=== PATIENT | female | born 1985 | race American Indian/Alaskan Native ===

== ENCOUNTER 2018-09-13 13:51 | Emergency (ER) | payer OTHER, SELFPAY ==
[2018-09-13 13:58] VITALS: BP 123/72; PULSE 86; RESP 14; TEMP 36.6
--- NOTE | 2018-09-13 14:20 | DI.RAD_ITS ---
SYMPTOM/DIAGNOSIS: ROLLED ANKLE INWARD AND HEARD SNAP. PAIN ALL OVER RIGHT ANKLE: No fracture or ankle mortise widening is seen. There is spurring of both malleoli and at the Achilles insertion on the calcaneus. The talar dose appears intact. IMPRESSION: No acute abnormality.
--- NOTE | 2018-09-13 14:24 | ED.GENADUL_ITS ---
Discharge Plan Disposition Patient Disposition: HOME Condition: Good Discharge Details Chief Complaint: Orthopedic Clinical Impression: Right ankle sprain Primary Care Provider: Camryn Vyas ED Provider: Yovanny Juares Home Meds and New Rx's Prescriptions: No Action hydroxyzine HCl 25 MG tablet 1 tab PO TID RF: 0 meloxicam 15 MG tablet 15 mg PO DAILY RF: 0 gabapentin 400 MG capsule 800 mg PO TID RF: 0 tramadol 50 MG tablet 50 mg PO Q6H PRN PRNRF: 0 levothyroxine 88 MCG tablet 1 tab PO DAILY RF: 0 epinephrine 0.3 MG/SYR auto-injector 0.3 mg IJ PRN PRNRF: 0 omeprazole magnesium [Prilosec OTC] 20 MG tablet,delayed release (DR/EC) 20 mg PO DAILY RF: 0 cholecalciferol (vitamin D3) [Vitamin D3] 2,000 UNIT capsule 1 tab PO DAILY RF: 0 Discharge Instructions Instructions: Ankle Sprain (ED) Stand Alone Forms: Work Release Referrals: Camryn Vyas [Primary Care Provider] - Return if symptoms worsen Medical Decision Making Will x-ray tib/fib, ankle, and foot. 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 Reviewed radiology report with her and friends. Nurse fitted for ankle stabilizer splint. She has crutches for home use. Advised to use RICE therapy. Work note provided. Return if symptoms worsen otherwise with pcp. Imaging Data Radiologic Study: Imaging: X-Ray My impression: no fracture Radiologist's impression: V-Rad: Right ankle: No evidence of acute diana abnormality. Tib/Fib: No evidence of acute diana abnormality. Foot: No evidence of acute bony injury. HPI General Date/Time Provider Initiated Documentation: 09/13/18 14:03 . Limitations to Documentation: no limitations . Information obtained by: patient . HPI Narrative: 33 y/o female here with c/o right ankle, foot, and leg pain. 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 Now swelling to the ankle and pain through out ankle, foot, lower leg. Took Tramadol COSTUME CUTTER. Related Data Home Medications Medication Instructions Recorded Confirmed cholecalciferol (vitamin D3) 1 tab PO DAILY 11/30/14 09/13/18 [Vitamin D-3] epinephrine 0.3 mg IJ PRN PRN 11/30/14 09/13/18 gabapentin 800 mg PO TID 11/30/14 09/13/18 hydroxyzine HCl 1 tab PO TID 11/30/14 09/13/18 levothyroxine 1 tab PO DAILY 11/30/14 10/23/16 meloxicam 15 mg PO DAILY 11/30/14 09/13/18 omeprazole magnesium [PriLOSEC Otc] 20 mg PO DAILY 11/30/14 09/13/18 tramadol 50 mg PO Q6H PRN PRN 11/30/14 09/13/18 Allergies Allergy/AdvReac Type Severity Reaction Status Date / Time venom-honey bee Allergy Severe Anaphylaxsi Unverified 10/23/16 15:17 [bee venom (honey bee)] s General Stated Complaint: Orthopedic MARTA: 4 Review of Systems Musculoskeletal Comments: right ankle, foot, and lower leg pain after rolling ankle and hearing snap PFSH Social History Smoking/Tobacco Use Status: Current every day Exam Const General: cooperative, healthy appearing and no acute distress Nutritional Appearance: obese Orientation: alert, awake and oriented x3 Extrem Right lower extremity: knee Details: normal to inspection and normal ROM; no tenderness and no swelling, lower leg Details: normal to inspection and tenderness Location: of the midshaft tibia, of the midshaft fibula, of the distal tibia and of the distal fibula; not of the posterior calf, not of the proximal tibia and not of the proximal fibula; no erythema and no deformity and ankle Details: tenderness Location: of the lateral malleolus, of the medial malleolus, of the anterior talofibular ligament, of the achilles tendon, anteromedially, anterolaterally, posteriorly and anteriorly, swelling Details: diffusely and abnormal ROM Details: pain with active ROM; no ecchymosis and achilles tendon exam normal Course Vital Signs Temperature 36.6 C 09/13/18 13:58 Pulse 86 09/13/18 13:58 Respiratory Rate 14 09/13/18 13:58 Blood Pressure 123/72 09/13/18 13:58 Temperature 36.6 C 09/13/18 13:58 Temperature Source Temporal Artery Scan 09/13/18 13:58 Pulse 86 09/13/18 13:58 Respiratory Rate 14 09/13/18 13:58 Blood Pressure 123/72 09/13/18 13:58 Blood Pressure Position Sitting 09/13/18 13:58 Oxygen Delivery Method Room Air 09/13/18 13:58 Oxygen Flow Rate 0 09/13/18 13:58 Pain Level 8 09/13/18 13:58
--- NOTE | 2018-09-13 14:48 | DI.RAD_ITS ---
SYMPTOM/DIAGNOSISS: ROLLED FOOT AND HEARD SNAP RIGHT FOOT: The exam is limited by patient positioning. No fracture or dislocation is identified. IMPRESSION: limited exam. No acute abnormality.
--- NOTE | 2018-09-13 14:58 | DI.RAD_ITS ---
SYMPTOM/DIAGNOSIS: ROLLED ANKLE, HEARD SNAP. PAIN IN MID-MADRIGAL RIGHT TIBIA/FIBULA: No fracture is identified. There are mild degenerative changes at the knee and ankle. IMPRESSION: No acute abnormality.
--- NOTE | 2018-09-13 15:04 | DI.VRAD_ITS ---
EXAM: XR Right Tibia and Fibula, 2 Views EXAM DATE/TIME: 09/13/2018 2:23 PM CLINICAL HISTORY: 33 years old, female; Pain; Lower leg; Right; Patient HX: Right leg pain, patient heard snap when rolled ankle. TECHNIQUE: XR Right tibia and fibula 2 views COMPARISON: No relevant prior studies available. FINDINGS: The bony structures are in anatomic alignment. No fracture is present. No radiopaque foreign body is identified. The joint spaces are well maintained. IMPRESSION: No evidence of acute bony abnormality. Dictated and Authenticated by: Russel Starkey MD. Ordering:CORRINA HERNANDEZ MD
--- NOTE | 2018-09-13 15:05 | DI.VRAD_ITS ---
EXAM: XR Right Foot Complete, 3 or more Views EXAM DATE/TIME: 09/13/2018 2:23 PM CLINICAL HISTORY: 33 years old, female; Pain; Foot; Right; Patient HX: Right foot pain, rolled foot patient heard snap. TECHNIQUE: XR Right foot 3 or more views. COMPARISON: CR RIGHT FOOT COMPLETE 06/09/2015 4:03 PM FINDINGS: Suggestion of extension deformities of the metatarsal phalangeal joints. May be positional. No evidence of acute bony injury. No radiopaque foreign bodies. IMPRESSION: No evidence of acute bony injury. Dictated and Authenticated by: Russel Starkey MD. Ordering:CORRINA HERNANDEZ MD
--- NOTE | 2018-09-13 15:07 | DI.VRAD_ITS ---
EXAM: XR Right Ankle Complete, 3 or more Views EXAM DATE/TIME: 09/13/2018 2:54 PM CLINICAL HISTORY: 33 years old, female; Pain; Ankle; Right TECHNIQUE: XR Right ankle 3 or more views. COMPARISON: CR RIGHT FOOT COMPLETE 06/09/2015 4:03 PM FINDINGS: The bony structures are in anatomic alignment. No fracture is present. No radiopaque foreign body is identified. The joint spaces are well maintained. IMPRESSION: No evidence of acute bony normality. Dictated and Authenticated by: Russel Starkey MD. Ordering:CORRINA HERNANDEZ MD
== END 2018-09-13 15:41 | disposition home or self-care (01) ==
LOC: ER 15:45
PROVIDERS: Emergency Provider Nurse Practitioner Family; PCP Family Medicine
DX: S93.401A Sprain of unspecified ligament of right ankle, initial encounter (principal); X50.3XXA Overexertion from repetitive movements, initial encounter
CPT/HCPCS: 29125; 99284; 73590; 73610; 73630; 99282; L1902

== ENCOUNTER 2019-01-02 16:19 | Emergency (ER) | payer MEDICAID, SELFPAY ==
[2019-01-02 16:24] VITALS: BP 130/82; PULSE 110; RESP 21; TEMP 37; O2SAT 95
--- NOTE | 2019-01-02 17:10 | ED.GENADUL_ITS ---
Discharge Plan Disposition Patient Disposition: HOME Condition: Stable Discharge Details Chief Complaint: Nk/Back Pain Clinical Impression: Back pain, Sciatica of left side Primary Care Provider: Camryn Vyas ED Provider: Eben Aaron Home Meds and New Rx's Prescriptions: New diclofenac potassium 50 mg tablet 50 mg PO TID PRN (Reason: pain) Qty: 15 RF: 0 lidocaine 5 % adhesive patch,medicated 1 patch TP DAILY PRN (Reason: pain) Qty: 15 RF: 0 prednisone 20 mg tablet 40 mg PO DAILY Qty: 8 RF: 0 Continued hydroxyzine HCl 25 MG tablet 1 tab PO PRN PRNRF: 0 gabapentin 400 MG capsule 800 mg PO TID RF: 0 tramadol 50 MG tablet 50 mg PO Q6H PRN PRNRF: 0 levothyroxine 88 MCG tablet 1 tab PO DAILY RF: 0 epinephrine 0.3 MG/SYR auto-injector 0.3 mg IJ PRN PRNRF: 0 cholecalciferol (vitamin D3) [Vitamin D3] 2,000 UNIT capsule 1 tab PO DAILY RF: 0 Discontinued meloxicam 15 MG tablet 15 mg PO DAILY RF: 0 Discharge Instructions Instructions: Sciatica (ED), Back Pain (ED) Additional Instructions: Feel free to return the emergency department for any new or significant worsening of symptoms or change in your back pain pattern. Otherwise take medication as prescribed and follow-up with your primary care provider or pain clinic as needed for reassessment Referrals: Camryn Vyas [Primary Care Provider] - (For reassessment if not improving) Discharge Data Discharge Date/Time-TO BE ENTERED AT DEPARTURE: 01/02/19 18:05 Medical Decision Making Patient presenting the emergency department for chief complaint of back pain. Patient reports that she has had chronic back pain for years and has seen her primary care along with the pain clinic. Patient reports this morning she woke up with a slight twinge in her back but did not think much of it but then when she went to the bar and to shovel she noticed a significant increase worsening of her back symptoms. Patient immediately had to stop and has noticed some increased spasms and pain throughout the day. She normally states sciatic type pain down her left leg but has noticed a little on the right. Patient states that she is ambulatory but movement does increase symptoms. Physical exam shows lumbar tenderness along with left buttock tenderness. Positive straight leg raise bilateral equal patellar DTRs bilateral, normal sensation and movement to lower extremities. Given chronicity of patient's back pain and no specific change in symptoms but just worsening flareup today I do not feel that any radiological imaging is warranted as I see no emergent signs of back pain such as epidural abscess, cauda equina, and no indication for fracture or traumatic type incidents that would require imaging or lab testing. Plan to treat patient symptomatically with Toradol shot, lidocaine patch, and prednisone which patient states is helped in the past. Patient was offered diazepam but refused this medication at this time. Patient placed up on 5-day burst of prednisone and informed to follow-up with primary care provider for reassessment if not improving. Patient also prescribed diclofenac and lidocaine patches for home use along with her Flexeril she is already prescribed. Return precautions were discussed. After discussion of diagnosis and plan of care patient has no further needs, questions, or concerns and states clear understanding to return to the emergency department for any worsening symptoms. HPI General Mode of arrival: ambulatory . Date/Time Provider Initiated Documentation: 01/02/19 16:38 . Limitations to Documentation: no limitations . Information obtained by: patient . History of Present Illness 33 year old F presents to the emergency department with the chief complaint of back pain, described as severe and similar to prior episodes, with intensity rated at 10. Quality is described as sharp, and is localized to the back. Patient extremity. Patient started experiencing this hour(s) (8) and it has been constant. No relieving factors improve symptom(s), Movement worsens symptoms . Patient did receive the following treatments prior to arrival, other (Trama dol, Flexeril) Related Data Home Medications Medication Instructions Recorded Confirmed cholecalciferol (vitamin D3) 1 tab PO DAILY 11/30/14 01/02/19 [Vitamin D3] epinephrine 0.3 mg IJ PRN PRN 11/30/14 01/02/19 gabapentin 800 mg PO TID 11/30/14 01/02/19 hydroxyzine HCl 1 tab PO PRN PRN 11/30/14 01/02/19 levothyroxine 1 tab PO DAILY 11/30/14 01/02/19 tramadol 50 mg PO Q6H PRN PRN 11/30/14 01/02/19 diclofenac potassium 50 mg PO TID PRN #15 tab 01/02/19 lidocaine 1 patch TP DAILY PRN #15 each 01/02/19 prednisone 40 mg PO DAILY #8 tab 01/02/19 Previous Rx's Medication Instructions Recorded diclofenac potassium 50 mg PO TID PRN #15 tab 01/02/19 lidocaine 1 patch TP DAILY PRN #15 each 01/02/19 prednisone 40 mg PO DAILY #8 tab 01/02/19 Allergies Allergy/AdvReac Type Severity Reaction Status Date / Time venom-honey bee Allergy Severe Anaphylaxsi Unverified 01/02/19 16:38 [bee venom (honey bee)] s General Stated Complaint: Nk/Back Pain MARTA: 3 Review of Systems Constitutional Denies chills and Denies fever(s) Cardiovascular Denies chest pain and Denies dyspnea on exertion Respiratory Denies cough and Denies dyspnea on exertion Gastrointestinal Denies abdominal pain, Denies change in bowel habits, Denies diarrhea, Denies nausea and Denies vomiting Genitourinary Denies urinary incontinence Musculoskeletal Reports as per HPI and Reports back pain Neurologic Denies sensory deficit PFSH Social History Smoking/Tobacco Use Status: Current every day Tobacco Type: cigarettes Smoking cigarettes per day: 10 Years smoked: 15 Tobacco: How many years used: 15 Alcohol Intake: current Alcohol Intake frequency: a few times a month Alcohol type: beer Drug use: Occasionally Substance use type: marijuana Details: CBV oil to help with pain, puts in her coffee Do you feel safe at home: Yes Do you feel safe in your relationship?: Yes Exam Const General: cooperative and no acute distress Orientation: alert, awake and oriented x3 Neck Neck: normal visual inspection, full ROM and no meningeal signs Resp Effort & Inspection: normal respiratory effort Auscultation: clear to auscultation bilaterally Cardio Rate: regular rate Rhythm: regular rhythm Heart Sounds: S1 normal and S2 normal Back/Spine/Pelvis Thoracic/Lumbar Spine: pain with thoraco-lumbar ROM, thoraco-lumbar ROM limited, No thoraco-lumbar spasm, No thoracic spinal tenderness, lumbar spinal tenderness and straight leg raise positive (Bilateral) Pelvis: no pain with anterior-posterior compression, no pain with lateral compression, buttock tenderness on the left and sciatic notch tenderness on the right Neuro General: alert, awake and oriented x3 DTR's: Rt Patellar: 1+ and Lt Patellar: 1+ Extrem Right lower extremity: hip/thigh Details: normal to inspection, knee Details: normal to inspection and lower leg Details: normal to inspection Course Vital Signs Temperature 37.0 C 01/02/19 16:24 Pulse 110 H 01/02/19 16:24 Respiratory Rate 21 01/02/19 16:24 Blood Pressure 130/82 01/02/19 16:24 Pulse Oximetry 95 01/02/19 16:24 Temperature 37.0 C 01/02/19 16:24 Temperature Source Temporal Artery Scan 01/02/19 16:24 Pulse 110 H 01/02/19 16:24 Respiratory Rate 21 01/02/19 16:24 Respiratory Effort Non-Labored 01/02/19 16:34 Blood Pressure 130/82 01/02/19 16:24 Pulse Oximetry 95 01/02/19 16:24 Oxygen Delivery Method Room Air 01/02/19 16:24 Oxygen Flow Rate 0 01/02/19 16:24 Pain Level 10 01/02/19 16:24
[2019-01-02] MEDS: Lidocaine 5% Patch 1 PATCH TP (17:29)
[2019-01-02] MEDS: Ketorolac 60 MG/2 ML VIAL IM (17:33)
[2019-01-02] MEDS: predniSONE 20 MG TAB 60 MG PO (17:37)
[2019-01-02 17:55] VITALS: BP 114/75; PULSE 99; RESP 16; TEMP 36.9; O2SAT 96
[2019-01-02 18:10] VITALS: BP 114/75; PULSE 99; RESP 16; TEMP 36.9; O2SAT 96
== END 2019-01-02 18:05 | disposition home or self-care (01) ==
PROVIDERS: Emergency Provider Nurse Practitioner Family; PCP Family Medicine
DX: M54.42 Lumbago with sciatica, left side (principal)
CPT/HCPCS: 96372; 99284; J1885; J7512

== ENCOUNTER 2019-01-27 14:45 | Outpatient (CLI) | payer MEDICAID, SELFPAY ==
--- NOTE | 2019-01-27 08:44 | DI.MRI_ITS ---
SYMPTOM/DIAGNOSIS: CHRONIC LOW BACK PAIN, M54.5 LUMBAR SPINE MRI: Routine noncontrast examination was performed. The conus medullaris has a normal appearance and location. At L 5-S 1, there is a left paracentral disc herniation. No nerve root compression is present. There is no central spinal canal stenosis or right neural foraminal stenosis. There does appear to be minimal narrowing of the left neural foramen. At L 4-5, there is disc desiccation. There is a small central disc herniation but no nerve root compression is present. No significant central spinal canal stenosis is seen. There does appear to be mild narrowing of the neural foramen but no nerve root compression is seen. L 3-4, L 2-3 and L 1-2 show no focal disc herniation, central spinal canal or neural foraminal stenosis. Marrow signal is within normal limits. IMPRESSION: 1. Left paracentral disc herniation at L 5-S 1 but no nerve root compression is present. No significant central spinal stenosis is seen. 2. Degenerative disc disease and a question of a very small central disc herniation at L 4-5 but no nerve root compression is identified.
== END 2019-01-27 15:05 ==
PROVIDERS: PCP Family Medicine; Visit Provider Family Medicine
DX: M54.5 Low back pain (principal); M51.27 Other intervertebral disc displacement, lumbosacral region; M51.36 Other intervertebral disc degeneration, lumbar region; G89.29 Other chronic pain
CPT/HCPCS: 72148

== ENCOUNTER 2019-02-11 13:35 | Outpatient (CLI) | payer MEDICAID, SELFPAY ==
[2019-02-11 13:43] VITALS: BP 156/81; PULSE 108; RESP 22; TEMP 36.3; O2SAT 97
--- NOTE | 2019-02-11 14:31 | DI.RAD_ITS ---
SYMPTOMS/DIAGNOSIS: LUMBAR RADICULOPATHY PAIN CLINIC LUMBAR SPINE: Fluoroscopy Time: 41.2 sec 46.21 mGy Images submitted from the Pain Clinic demonstrate needle positioning over the left lateral portion of the L5 vertebral body in conjunction with a transforaminal epidural steroid injection. Please see Dr. Dumont's procedure report for further information.
--- NOTE | 2019-02-11 14:35 | PDOC.PAIN_ITS ---
Pain Clinic Procedure Note Current Active Problems Problem Status Onset Lumbar radiculitis Chronic LUMBAR / SACRAL TRANSFORAMINAL INJECTION JENA KISER has been referred [facility] for a transforaminal nerve root block and steroid injection. COMMENTS: The patient has a disc herniation at L5-S1. Her pain goes down to her foot. To her heel. Patient was interviewed and the medical record reviewed. There were no medical, pharmacologic, radiographic or other structural contraindications to attempting fluoroscopically guided transforaminal nerve root block and epidural steroid injection. Risks and expected side effects as well as potential benefit of the procedure were reviewed and voiced concerns addressed. The printed consent form was signed and witnessed. Standard time-out procedure was performed. Patient was placed in the prone position on the fluoroscopy table and automated blood pressure cuff and pulse oximeter applied. Fluoroscopy was utilized to identify the {left} neural foramen between L5 and S1. A skin bill was made for the needle insertion site. A Chlorhexadine prep was carried out, and sterile drapes were applied. Local anesthesia was achieved in the skin and subcutaneous tissues. A 22 gauge curved tip spinal needle was then inserted, advanced with fluoroscopic guidance into the neural foramen, confirmed on the lateral view. After negative aspiration, 2 ml of Omnipaque 240 was injected confirming position in A/P and lateral views. This showed a good spread of dye transforaminally into the epidural space. There was no vascular update with contrast injection under continuous fluoroscopy and digital substraction. 40 mg of Depo-Medrol was injected, followed by 0.5 ml of 0.5% bupivacaine flush for the nerve root block, as well. There was no unusual discomfort expressed.The needle was withdrawn. The patient tolerated the procedure well. A Band-Aid was applied. Vital signs were stable throughout the procedure and were as recorded in nursing records. If given, dosages of intravenous drugs for anxiolysis and analgesia were documented in nursing records. Follow up plans and appointments were discussed. Post procedure instruction was given as documented in nursing records and patient was discharged in the care of an identified commercial driver's license driver. COMMENTS: Pain went from 9/10 to 3/10. She will follow-up as needed consider repeating if she gets good relief that lasts. CC: Camryn Vyas
[2019-02-11] MEDS: Bupivacaine 0.5% Pres-Free 10 ML VIAL IJ (14:43)
[2019-02-11] MEDS: Omnipaque 240 MG/ML 50 ML BTL IJ (14:44)
[2019-02-11] MEDS: methylPREDNISolone ACETATE 40 MG/ML VIAL IJ (14:44)
[2019-02-11 14:46] VITALS: BP 140/73; PULSE 114; RESP 16; O2SAT 100
== END 2019-02-11 13:55 ==
PROVIDERS: PCP Family Medicine; Visit Provider Anesthesiology Pain Medicine
DX: M54.16 Radiculopathy, lumbar region (principal)
CPT/HCPCS: 64483; 72100; J1030; Q9967

== ENCOUNTER 2019-08-22 17:07 | Emergency (ER) | payer OTHER, SELFPAY ==
[2019-08-22 17:11] VITALS: BP 131/79; PULSE 84; RESP 18; TEMP 36.5; O2SAT 98
--- NOTE | 2019-08-22 17:33 | ED.GENADUL_ITS ---
Discharge Plan Disposition Patient Disposition: HOME Condition: Stable Discharge Details Chief Complaint: Orthopedic Clinical Impression: Left ankle sprain Primary Care Provider: Camryn Vyas ED Provider: Tyrell Garcia Home Meds and New Rx's Prescriptions: Continued omeprazole 20 mg capsule,delayed release(DR/EC) 20 mg PO DAILY RF: 0 cyclobenzaprine 10 mg tablet 10 mg PO TID RF: 0 hydroxyzine HCl 25 MG tablet 1 tab PO PRN PRNRF: 0 gabapentin 400 MG capsule 800 mg PO TID RF: 0 levothyroxine 88 MCG tablet 1 tab PO DAILY RF: 0 epinephrine 0.3 MG/SYR auto-injector 0.3 mg IJ PRN PRNRF: 0 cholecalciferol (vitamin D3) [Vitamin D3] 2,000 UNIT capsule 1 tab PO DAILY RF: 0 tramadol 50 mg tablet 50 mg PO TID PRNRF: 0 lidocaine 5 % adhesive patch,medicated 1 patch TP DAILY PRN (Reason: pain) Qty: 15 RF: 0 ibuprofen 200 mg Tablet 200 mg PO QID PRNRF: 0 Discharge Instructions Instructions: Ankle Sprain (ED) Additional Instructions: Rest, ice, elevate to reduce pain and swelling. May use ankle stabilizer and/or Jaswinder bandage for stability and comfort. Remove at the end of the day. Return for worsening discomfort, or any other acute concern. Medical Decision Making 34-year-old female presents with left lateral ankle pain that began after she rolled the ankle trying to get into her office this morning. She did strike her head but did not have a loss of conscious does not of any persistent headache. She was not injured in any other way. Her vital signs are normal. She is tender primarily overlying the left lateral malleolus, minimally so left proximal fibula. Patient given Tylenol and referred for x-ray: No evidence of fracture. Will treat with lace up ankle stabilizer. Discussed with patient home management as well as indications to return. Stable for outpatient management at this time. HPI General Mode of arrival: ambulatory . Date/Time Provider Initiated Documentation: 08/22/19 17:20 . Limitations to Documentation: no limitations . Information obtained by: patient . History of Present Illness 34 year old F presents to the emergency department with the chief complaint of Left ankle pain after twisting this morning, described as moderate, Quality is described as dull, and is localized to the left and lower extremity. Patient reports no radiation. Patient started experiencing this hour(s) and it has been constant. Rest improves symptom(s), Movement worsens symptoms . Patient notes no other symptoms. and other (Slight striking of her head but no loss of consciousness, no headache). Patient did receive the following treatments prior to arrival, NSAID Related Data Home Medications Medication Instructions Recorded Confirmed cholecalciferol (vitamin D3) 1 tab PO DAILY 11/30/14 02/11/19 [Vitamin D3] epinephrine 0.3 mg IJ PRN PRN 11/30/14 02/11/19 gabapentin 800 mg PO TID 11/30/14 02/11/19 hydroxyzine HCl 1 tab PO PRN PRN 11/30/14 02/11/19 levothyroxine 1 tab PO DAILY 11/30/14 02/11/19 lidocaine 1 patch TP DAILY PRN #15 each 01/02/19 02/11/19 cyclobenzaprine 10 mg tablet 10 mg PO TID 01/14/19 02/11/19 omeprazole 20 mg capsule,delayed 20 mg PO DAILY 01/14/19 02/11/19 release tramadol 50 mg tablet 50 mg PO TID PRN tab 01/14/19 02/11/19 ibuprofen 200 mg PO QID PRN 02/11/19 02/11/19 Previous Rx's Medication Instructions Recorded lidocaine 1 patch TP DAILY PRN #15 each 01/02/19 Allergies Allergy/AdvReac Type Severity Reaction Status Date / Time venom-honey bee Allergy Severe Anaphylaxsi Unverified 08/22/19 17:17 [bee venom (honey bee)] s High Doses of Acetaminophen AdvReac Unknown Uncoded 08/22/19 17:17 General Stated Complaint: Orthopedic MARTA: 4 Review of Systems Narrative: 6 systems reviewed and otherwise negative [facility] Medical History Agoraphobia with panic attacks (Chronic) Ankle pain, right (Acute) Arthralgia (Acute) Chronic low back pain (Chronic) Cyclical vomiting (Acute) Dental caries (Acute) Depression with anxiety (Chronic) Family history of breast cancer (Acute) Family history of diabetes mellitus (Acute) Hx of bee sting allergy (Acute) Hypothyroidism (Chronic) Obesity (Chronic) PTSD (post-traumatic stress disorder) (Chronic) Tobacco use disorder (Acute) Social History Smoking/Tobacco Use Status: Current every day Tobacco Type: cigarettes Years smoked: 15 Tobacco: How many years used: 15 Alcohol Intake: current Alcohol Intake frequency: holidays/special occasions only Alcohol type: beer Drug use: Occasionally Substance use type: marijuana Details: CBD oil to help with pain, puts in her coffee Do you feel safe at home: Yes Do you feel safe in your relationship?: Yes Exam Narrative Exam Narrative: GEN: awake, alert, oriented 3. Pleasant, well groomed, interactive. HEAD: Normocephalic, atraumatic ENT: Mucous membranes moist, oropharynx unremarkable, External ear exam unremarkable EYES: PERRL, EOMI NECK: Full ROM, no DANIEL, no menigismus, nontender CHEST/RESP: Nontender EXT: Full ROM, left lateral malleoli are swelling with tenderness. Minimal left proximal fibular tenderness to palpation. Sensation intact throughout Neuro: Grossly normal neurologic exam, conversant, interactive. Psych: Speech fluent, thoughts congruent, affect normal Course Vital Signs Vital signs: Vital Signs Temperature 36.5 C 08/22/19 17:11 Pulse 84 08/22/19 17:11 Respiratory Rate 18 08/22/19 17:11 Blood Pressure 131/79 08/22/19 17:11 Pulse Oximetry 98 08/22/19 17:11 Temperature 36.5 C 08/22/19 17:11 Temperature Source Temporal Artery Scan 08/22/19 17:11 Pulse 84 08/22/19 17:11 Respiratory Rate 18 08/22/19 17:11 Respiratory Effort Non-Labored 08/22/19 17:16 Blood Pressure 131/79 08/22/19 17:11 Blood Pressure Position Supine 08/22/19 17:11 Pulse Oximetry 98 08/22/19 17:11 Oxygen Delivery Method Room Air 08/22/19 17:11 Oxygen Flow Rate 0 08/22/19 17:11 Pain Level 8 08/22/19 17:28
[2019-08-22] MEDS: Acetaminophen 500 MG TAB 1000 MG PO (17:34)
--- NOTE | 2019-08-22 17:52 | DI.RAD_ITS ---
EXAM: XR TIB/FIB LT INDICATION: lateral pain and swelling distal > prox. COMPARISON: XR tib/fib RT from 09/13/2018 TECHNIQUE: 2D digital imaging was performed. FINDINGS: No fracture or dislocation is seen. Degenerative changes are noted at the knee. Ankle joint space is well maintained. No soft tissue foreign bodies or abnormal gas collections are seen. IMPRESSION: No acute abnormality.
--- NOTE | 2019-08-22 19:04 | DI.VRAD_ITS ---
PROCEDURE INFORMATION: Exam: XR Left Tibia and Fibula Exam date and time: 08/22/2019 17:51 Clinical history: 34 years old, female; Lower leg; Left; Patient HX: Lateral pain and swelling distal - proximal TECHNIQUE: Imaging protocol: XR Left tibia and fibula. Views: 2 views. COMPARISON: No relevant prior studies available. FINDINGS: Bones/joints: Degenerative changes are present in the knee. No acute fracture or subluxation. Soft tissues: Benign-appearing chronic soft tissue calcifications in the lateral ankle. IMPRESSION: No acute bony pathology. Dictated and Authenticated by: Ameena Henderson MD. Ordering:AUGUSTUS Santillan MD
== END 2019-08-22 18:35 | disposition home or self-care (01) ==
PROVIDERS: Emergency Provider Emergency Medicine; PCP Family Medicine
DX: S93.402A Sprain of unspecified ligament of left ankle, initial encounter (principal); X50.9XXA Other and unspecified overexertion or strenuous movements or postures, initial encounter
CPT/HCPCS: 29515; 99283; 73590; L1902

== ENCOUNTER 2020-01-19 02:15 | Outpatient (CLI) | payer MEDICAID, SELFPAY ==
[2020-01-22 04:43] LABS: SARS-CoV-2 RNA Undetected (Undetected); SARS-CoV-2 Specimen Source Nasopharynx
== END 2020-01-19 02:35 ==
PROVIDERS: PCP Family Medicine; Visit Provider Specialist/Technologist Athletic Trainer
DX: Z20.828 Contact with and (suspected) exposure to other viral communicable diseases (principal)
CPT/HCPCS: U0003

== ENCOUNTER 2020-09-17 17:09 | Emergency (ER) | payer MEDICAID, SELFPAY ==
--- NOTE | 2020-09-17 17:30 | DI.RAD_ITS ---
EXAM: XR ANKLE LT COMPLETE CLINICAL HISTORY: Left ankle injury, pain. TECHNIQUE: 2D digital imaging was performed. COMPARISON: CR XR ANKLE RT COMPLETE from 09/13/2018 FINDINGS: There is no evidence of acute fracture no widening of the mortise. Talar dome appears unremarkable. Small calcifications subjacent to the lateral malleolus have the appearance of accessory ossicles. Bone density is normal. No osseous lesions. IMPRESSION: No acute fracture or dislocation. DATA REPOSITORY: RADIATION DOSE DELIVERED:
--- NOTE | 2020-09-17 17:42 | W.ED.GENAD ---
Discharge Plan Disposition Patient Disposition: HOME Condition: Stable Discharge Details Clinical Impression: Moderate left ankle sprain Primary Care Provider: Camryn Vyas ED Provider: Yaquelin Joyce Home Meds and New Rx's Prescriptions: Continued omeprazole 20 mg capsule,delayed release(DR/EC) 20 mg PO DAILY RF: 0 cyclobenzaprine 10 mg tablet 10 mg PO TID RF: 0 hydroxyzine HCl 25 MG tablet 1 tab PO PRN PRNRF: 0 gabapentin 400 MG capsule 800 mg PO TID RF: 0 levothyroxine 88 MCG tablet 1 tab PO DAILY RF: 0 epinephrine 0.3 MG/SYR auto-injector 0.3 mg IJ PRN PRNRF: 0 cholecalciferol (vitamin D3) [Vitamin D3] 2,000 UNIT capsule 1 tab PO DAILY RF: 0 tramadol 50 mg tablet 50 mg PO TID PRNRF: 0 lidocaine 5 % adhesive patch,medicated 1 patch TP DAILY PRN (Reason: pain) Qty: 15 RF: 0 ibuprofen 200 mg Tablet 200 mg PO QID PRNRF: 0 Discharge Instructions Instructions: Ankle Sprain (ED) Additional Instructions: Rest, ice, compression, elevation. Use walking boot as instructed for weightbearing. Follow-up with orthopedics in 1 to 2 weeks. Follow up with primary care provider in 3-5 days. Return to ED sooner if any worsening or concerns. Increase oral fluids. Please take Tylenol or Ibuprofen with food every 4-6 hours as needed for pain and swelling. Referrals: Camryn Vyas [Primary Care Provider] - Misael Rodriguez MD [ [facility]YSICIAN] - Medical Decision Making 34-year-old female presents to the ER with chief complaint of left ankle pain. Patient states approximately 1 month ago she rolled her left ankle while hiking. She was never seen at that time. She states that last night she put her foot down from the couch and felt a sharp stabbing pain to the back of her ankle. She has increased pain with weightbearing. She is limping upon arrival but ambulatory. She has a past medical history of lumbar radiculopathy and back pain, obesity, PTSD, hypothyroidism, and she is a daily smoker. : XR Left ankle. Views: 3 or more views. COMPARISON: CR LEFT FOOT COMPLETE 06/09/2015 3:59 PM FINDINGS: Bones/joints: No acute fracture. No dislocation. No focal osseous lesion. Soft tissues: No soft tissue radiopaque foreign body. Other findings: A few small well-corticated calcifications inferior to the left lateral malleolus, likely reflecting old injury. IMPRESSION: 1. No acute fracture or dislocation. 2. A few small well-corticated calcifications inferior to the left lateral malleolus, likely reflecting old injury. Thank you for allowing us to participate in the care of your patient Patient was given a Ortho walking boot and instructed on RICE treatment at home. Placed on orthopedic follow-up list. Instructed to take Tylenol or ibuprofen every 4-6 hours as needed for pain. Patient verbalized understanding. She was given Tylenol while here in department. Differential diagnoses include occult fracture, Achilles tendon tear, or other injuries. HPI General Mode of arrival: ambulatory. Date/Time Provider Initiated Documentation: 09/17/20 17:32. Limitations to Documentation: no limitations. Information obtained by: patient. HPI Narrative: 34-year-old female presents to the ER with chief complaint of left ankle pain. Patient states approximately 1 month ago she rolled her left ankle while hiking. She was never seen at that time. She states that last night she put her foot down from the couch and felt a sharp stabbing pain to the back of her ankle. She has increased pain with weightbearing. She is limping upon arrival but ambulatory. She has a past medical history of lumbar radiculopathy and back pain, obesity, PTSD, hypothyroidism, and she is a daily smoker. Related Data Home Medications Medication Instructions Recorded Confirmed cholecalciferol (vitamin D3) 1 tab PO DAILY 11/30/14 02/11/19 [Vitamin D3] epinephrine 0.3 mg IJ PRN PRN 11/30/14 02/11/19 gabapentin 800 mg PO TID 11/30/14 02/11/19 hydroxyzine HCl 1 tab PO PRN PRN 11/30/14 02/11/19 levothyroxine 1 tab PO DAILY 11/30/14 02/11/19 lidocaine 1 patch TP DAILY PRN #15 each 01/02/19 02/11/19 cyclobenzaprine 10 mg tablet 10 mg PO TID 01/14/19 02/11/19 omeprazole 20 mg capsule,delayed 20 mg PO DAILY 03/27/19 04/24/19 release tramadol 50 mg tablet 50 mg PO TID PRN tab 01/14/19 02/11/19 ibuprofen 200 mg PO QID PRN 02/11/19 02/11/19 Previous Rx's Medication Instructions Recorded lidocaine 1 patch TP DAILY PRN #15 each 01/02/19 Allergies Allergy/AdvReac Type Severity Reaction Status Date / Time venom-honey bee Allergy Severe Anaphylaxsi Unverified 09/17/20 17:48 [bee venom (honey bee)] s High Doses of Acetaminophen AdvReac Unknown Uncoded 09/17/20 17:48 General MARTA: 4 Review of Systems Narrative: Constitutional: Negative for weight loss, alert and oriented, well groomed, normal body habitus, appears comfortable. HEENT: Denies trauma, headaches, blurry vision, nasal discharge, sore throat, trouble swallowing. Chest: Denies chest pain, palpitations, irregular rhythm, hypertension. Respiratory: Denies Shortness of breath, cough, hemoptysis. GI: Denies abdominal pain, nausea, vomiting, diarrhea, constipation. : Denies dysuria, hematuria, flank pain, rectal bleeding. Musculoskeletal: Left ankle pain. Neuro: Denies dizziness, blurry vision, weakness, syncope, headache or facial numbness. Hematologic: Denies easy bruising, intolerance to heat or cold, hair loss. [facility] Medical History (Updated 09/17/20 @ 18:35 by Yaquelin Joyce) Agoraphobia with panic attacks Ankle pain, right Arthralgia Chronic low back pain Cyclical vomiting Dental caries Depression with anxiety Family history of breast cancer Family history of diabetes mellitus Hx of bee sting allergy Hypothyroidism Obesity PTSD (post-traumatic stress disorder) Tobacco use disorder Social History Smoking/Tobacco Use Status: Current every day Tobacco Type: cigarettes Years smoked: 15 Tobacco: How many years used: 15 Smoking risk assessment performed?: Yes Alcohol Intake: current Alcohol Intake frequency: holidays/special occasions only Alcohol type: beer Drug use: Occasionally Substance use type: marijuana Details: CBD oil to help with pain, puts in her coffee Do you feel safe at home: Yes Do you feel safe in your relationship?: Yes Exam Narrative Exam Narrative: Constitutional: Alert and oriented x3. Appears stated age. obese body habitus. Head: Normocephalic, no trauma. Eyes: Pupils PERRLA, Red reflex noted, EOM's intact. Eyelids symmetrical without lesions, discharge, or swelling. ENT: Bilateral TM's WNL, External ear normal to inspection, no mastoid TTP, swelling, or erythema, Nasal turbinates WNL, no nasal discharge. Normal dentition, Posterior pharynx WNL, no exudate. Chest: RRR, Normal S1, S2, distal pulses intact. Resp: Lungs clear to auscultation bilaterally, no wheezes, rales, or rhonchi. Musculoskeletal: Normal gait, 5/5 strength to all four extremities. Skin: No suspicious rashes or lesions. Capillary refill less than 2 sec. Neurologic: Cranial nerves II-XII intact. Alert and oriented x 3. DTR's intact. Hematologic/Lymphatic: No ecchymosis, no lymphadenopathy.
[2020-09-17 17:45] VITALS: BP 116/69; PULSE 85; RESP 16; TEMP 36.7; O2SAT 100
--- NOTE | 2020-09-17 18:15 | DI.VRAD_ITS ---
PROCEDURE INFORMATION: Exam: XR Left Ankle Exam date and time: 09/17/2020 6:05 PM Age: 35 years old Clinical indication: Left ankle pain, injury TECHNIQUE: Imaging protocol: XR Left ankle. Views: 3 or more views. COMPARISON: CR LEFT FOOT COMPLETE 06/09/2015 3:59 PM FINDINGS: Bones/joints: No acute fracture. No dislocation. No focal osseous lesion. Soft tissues: No soft tissue radiopaque foreign body. Other findings: A few small well-corticated calcifications inferior to the left lateral malleolus, likely reflecting old injury. IMPRESSION: 1. No acute fracture or dislocation. 2. A few small well-corticated calcifications inferior to the left lateral malleolus, likely reflecting old injury. Dictated and Authenticated by: Juan Payan MD. Ordering:JUANA Jamison MD
[2020-09-17] MEDS: Ketorolac 30 MG/ML VIAL IVP (18:56)
[2020-09-17] MEDS: Acetaminophen 500 MG TAB PO (18:56)
== END 2020-09-17 19:05 | disposition home or self-care (01) ==
PROVIDERS: Emergency Provider Registered Nurse Emergency; PCP Family Medicine
DX: S93.492A Sprain of other ligament of left ankle, initial encounter (principal); X50.9XXA Other and unspecified overexertion or strenuous movements or postures, initial encounter
CPT/HCPCS: 29515; 96374; 99284; 73610; 99283; J1885

== ENCOUNTER 2020-11-01 01:19 | Outpatient (CLI) | payer MEDICAID, SELFPAY ==
--- NOTE | 2020-11-01 08:00 | DI.MRI_ITS ---
EXAM: MR LOWER JOINT LT WO CLINICAL HISTORY: ankle pain,achilles tendinitis,peroneal tendonitis,m76.62,m76.72. TECHNIQUE: Multiplanar multisequence MRI was performed. COMPARISON: CR,XR XR ANKLE LT COMPLETE from 09/17/2020 FINDINGS: There is edema in the subcutaneous fat of the lower leg. The marrow signal is normal. There is no talar dome defect. Small bony densities are noted beneath the lateral malleolus. The Achilles tendo n has a normal appearance. The peroneal tendons appear normal. The flexor and extensor tendons are intact. No ligamentous disruption is seen. IMPRESSION: No evidence tendon tear. Edema is seen in the subcutaneous fat. DATA REPOSITORY:
== END 2020-11-01 01:39 ==
PROVIDERS: PCP Family Medicine; Visit Provider Student in an Organized Health Care Education/Training Program
DX: M76.62 Achilles tendinitis, left leg (principal); M76.72 Peroneal tendinitis, left leg; M25.572 Pain in left ankle and joints of left foot; R60.0 Localized edema
CPT/HCPCS: 73721

== ENCOUNTER 2021-08-24 14:05 | Outpatient (REF) | payer MEDICAID, SELFPAY ==
[2021-08-25 10:45] LABS: Lyme Ab w Rflx to Lyme Confirm Negative (Negative)
== END 2021-08-24 14:06 | disposition home or self-care (01) ==
LOC: NCHCN 14:05
PROVIDERS: PCP Family Medicine; Visit Provider Nurse Practitioner Family
DX: R53.83 Other fatigue (principal)
CPT/HCPCS: 87798; 86618

== ENCOUNTER 2022-11-30 16:16 | Outpatient (REF) | payer MEDICAID, SELFPAY ==
[2022-11-30 20:45] LABS: Abs Immature Grans 0.03 10^3/uL (0.0-0.06); Absolute Basophil Count 0.02 10^3/uL (0.0-0.2); Absolute Eosinophil Count 0.11 10^3/uL (0.0-0.7); Absolute Lymphocyte Count 1.51 10^3/uL (1.2-3.4); Absolute Monocyte Count 0.91 10^3/uL (0.1-0.8); Absolute Neutrophil Count 4.49 10^3/uL (1.2-6.7); Basophils % 0.3; Eosinophils % 1.6; HCT 44.2 % (36.0-46.0); HGB 14.3 g/dL (11.2-15.7); Immature Grans % 0.4; Lymphocytes % 21.4; MCH 28.9 pg (27.0-33.0); MCHC 32.4 % (32.0-36.0); MCV 89 fL (80-95); MPV 11.4 fL (8.0-11.0); Monocytes % 12.9; Neutrophils % 63.4; Platelet Count 336 10^3/uL (130-400); RBC 4.95 10^6/uL (3.93-5.22); RDW 14.6 % (11.7-14.6); RDW-SD 48.1 fL; WBC 7.07 10^3/uL (4.4-10.8)
[2022-11-30 21:03] LABS: ALT 34 U/L (14-59); AST 30 U/L (15-37); Albumin 3.5 g/dL (3.4-5.0); Alkaline Phosphatase 76 U/L (46-116); Anion Gap 8.4 mmol/L (3-11); BUN 7 mg/dL (7-18); Bilirubin, Total 0.2 mg/dL (0.2-1.0); CO2 27.6 mmol/L (21.0-32.0); CREATININE 0.8 mg/dL (0.55-1.02); Calcium 8.6 mg/dL (8.5-10.1); Chloride 102 mmol/L (98-107); Estimated GFR 98.48 (mL/min/1.73m2); Glucose 124 mg/dL (74-106); Lipase 22 U/L (16-77); Potassium 3.9 mmol/L (3.5-5.1); Sodium 138 mmol/L (136-145); Total Protein 7.7 g/dL (6.4-8.2)
[2022-11-30 21:36] LABS: C Diff PCR Negative (Negative)
[2022-12-02 11:36] LABS: COVID-19 RT-PCR UVMMC Result Negative (Negative)
[2022-12-02 22:09] LABS: Campylobacter PCR Negative (Negative); Salmonella PCR Negative (Negative); Shiga Toxin PCR Negative (Negative); Shigella/Enteroinvasive Ecoli Negative (Negative)
== END 2022-11-30 16:17 | disposition home or self-care (01) ==
LOC: LBN 16:16
PROVIDERS: PCP Family Medicine; Visit Provider Physician Assistant Medical
DX: R11.2 Nausea with vomiting, unspecified (principal); R19.7 Diarrhea, unspecified; Z20.822 Contact with and (suspected) exposure to COVID-19
CPT/HCPCS: 80053; 83690; 87329; 87493; 87505; U0003; 85025; 87177

== ENCOUNTER 2023-04-26 15:50 | Outpatient (REF) | payer MEDICAID, SELFPAY ==
[2023-04-26 20:56] LABS: Source Nasal/Nares
[2023-04-26 21:40] LABS: COVID-19 PCR Negative (Negative)
[2023-04-28 12:18] LABS: Chlamydia Result Negative (Negative); GC Result Negative (Negative)
== END 2023-04-26 15:51 | disposition home or self-care (01) ==
LOC: LBN 15:50
PROVIDERS: PCP Family Medicine; Visit Provider Physician Assistant Medical
DX: L29.2 Pruritus vulvae (principal); Z20.822 Contact with and (suspected) exposure to COVID-19; N76.0 Acute vaginitis
CPT/HCPCS: 87491; 87591; 87635; 87480; 87510; 87660

== ENCOUNTER 2023-07-27 14:25 | Emergency (ER) | payer MEDICAID, SELFPAY ==
[2023-07-27 14:28] VITALS: BP 186/113; PULSE 70; RESP 18; TEMP 36.5; O2SAT 97
--- NOTE | 2023-07-27 15:04 | ED.GENADUL_ITS ---
Discharge Plan Disposition Patient Disposition: Home Discharge Details Clinical Impression: Urinary tract infection Primary Care Provider: Camryn Vyas ED Provider: Tania Glynn Home Meds and New Rx's Prescriptions: New phenazopyridine [Pyridium] 200 mg tablet 200 mg PO TID PRNQty: 6 0RF Continued omeprazole 20 mg capsule,delayed release(DR/EC) 20 mg PO DAILY cyclobenzaprine 10 mg tablet 10 mg PO TID diclofenac sodium [Voltaren] 1 % gel 2 g topical QID Qty: 100 0RF Rx Instructions: apply to single elbow, wrist or hand; for hand includes palm/fingers/back of hand hydroxyzine HCl 25 MG tablet 1 tab PO PRN PRN Rx Instructions: takes for nausea or anxiety gabapentin 400 MG capsule 800 mg PO TID Patient Comments: 400 mg TID, 100mgBID levothyroxine 88 MCG tablet 1 tab PO DAILY Patient Comments: pt. not sure of dose epinephrine 0.3 MG/SYR auto-injector 0.3 mg IJ PRN PRN cholecalciferol (vitamin D3) [Vitamin D3] 2,000 UNIT capsule 1 tab PO DAILY tramadol 50 mg tablet 50 mg PO TID PRN fluconazole 150 mg tablet 150 mg PO ONCE lidocaine 5 % adhesive patch,medicated 1 patch TP DAILY PRN (Reason: pain) Qty: 15 0RF Rx Instructions: leave on most painful area for 12 hrs ibuprofen 200 mg Tablet 200 mg PO QID PRN Discharge Instructions Stand Alone Forms: Work Release Medical Decision Making Patient seems unclear whether she has started her period or is just having blood in her urine. Urine is positive for leukocyte esterase, blood, and white blood cells. We will do a CT abdomen and pelvis to assure there is no infected kidney stone. I am giving her Pyridium and ceftriaxone. She will get a recheck with her primary care doc on Saturday if not improved. She will return to ED for fever of 100.4 or above, protracted vomiting, localized abdominal pain, any other concerns. Patient states the Pyridium really helped decrease the discomfort when she peed in the ED. Medical Records Medical records reviewed: Yes I reviewed the patient's medical records. Imaging Data Radiologic Study: Imaging: CT Scan (Exam(s) PROCEDURE INFORMATION: Exam: CT Abdomen And Pelvis Without Contrast Exam date and time: 07/27/2023 5:19 PM Age: 38 years old Clinical indication: Other: Low back pain, hematuria, dysuria; Patient HX: Lbp, hematuria, dysuria TECHNIQUE: Imaging protocol: Computed tomography of the abdomen and) Lab Data Lab results reviewed: Yes I reviewed the patient's lab results. Lab results narrative: Cell count is normal. Platelet count is 438. The remainder of patient's labs are unremarkable. HPI General Date/Time Provider Initiated Documentation: 07/27/23 14:57 . HPI Narrative: This 38-year-old female patient presents with a chief complaint of dysuria. The patient states that she was recently on amoxicillin and prednisone for URI. She started to feel some discomfort in her perineal area and called her doctor who thought she might have a yeast infection. She prescribed fluconazole tablets. The patient states yesterday states yesterday began feeling like she was peeing razor blades. She does say that she has had a little bit of blood in her urine. She says she is about to start her period and does get lower back pain with her menses. She has some lower back pain but also feels like someone kicked her in the back. This is a little bit unusual. She has had no fever or chills. There is no nausea, vomiting, or abdominal pain. Related Data Home Medications Medication Instructions Recorded Confirmed cholecalciferol (vitamin D3) 50 1 tab PO DAILY 11/30/14 07/27/23 mcg (2,000 unit) capsule (Vitamin D3) epinephrine 0.3 mg/0.3 mL 0.3 mg IJ PRN PRN 11/30/14 07/27/23 injection, auto-injector gabapentin 400 mg capsule 800 mg PO TID 11/30/14 07/27/23 hydroxyzine HCl 25 mg tablet 1 tab PO PRN PRN 11/30/14 07/27/23 levothyroxine 88 mcg tablet 1 tab PO DAILY 11/30/14 07/27/23 lidocaine 5 % topical patch 1 patch topical DAILY PRN pain #15 01/02/19 10/24/20 ea cyclobenzaprine 10 mg tablet 10 mg PO TID 01/14/19 07/27/23 omeprazole 20 mg capsule,delayed 20 mg PO DAILY 01/14/19 07/27/23 release tramadol 50 mg tablet 50 mg PO TID PRN 01/14/19 07/27/23 ibuprofen 200 mg tablet 200 mg PO QID PRN 02/11/19 10/24/20 diclofenac sodium 1 % topical gel 2 g topical QID #100 grams 11/11/20 11/11/20 (Voltaren) fluconazole 150 mg tablet 150 mg PO ONCE 07/27/23 07/27/23 phenazopyridine 200 mg tablet 200 mg PO TID PRN 6 doses #6 tabs 07/27/23 (Pyridium) Previous Rx's Medication Instructions Recorded lidocaine 5 % topical patch 1 patch topical DAILY PRN pain #15 01/02/19 ea diclofenac sodium 1 % topical gel 2 g topical QID #100 grams 11/11/20 (Voltaren) phenazopyridine 200 mg tablet 200 mg PO TID PRN 6 doses #6 tabs 07/27/23 (Pyridium) Allergies Allergy/AdvReac Type Severity Reaction Status Date / Time venom-honey bee Allergy Severe Anaphylaxsi Unverified 07/27/23 14:33 [bee venom (honey bee)] s High Doses of Acetaminophen AdvReac Unknown Uncoded 07/27/23 14:33 General Stated Complaint: Urinary MARTA: 3 Review of Systems Constitutional Constitutional: Denies chills, Denies fever(s), Denies headache(s) and Denies weakness Eyes Eyes: Denies diplopia and Reports other (no redness) ENT Ears, Nose, Mouth, and Throat: Denies otalgia, Denies headache(s), Denies nasal congestion, Denies nasal discharge, Denies neck pain and Denies sore throat Cardiovascular Cardiovascular: Denies chest pain, Denies palpitations and Denies dyspnea Respiratory Respiratory: Denies cough and Denies dyspnea Gastrointestinal Gastrointestinal: Denies abdominal pain, Denies diarrhea, Denies nausea and Denies vomiting Comments: obese Genitourinary Genitourinary: Denies dysuria Musculoskeletal Musculoskeletal: Denies myalgias, Denies muscle weakness, Denies neck pain, Denies numbness and Reports other (edema) Integumentary/Breasts Skin/Breast: Denies change in pigmentation and Denies rash Neurologic Neurologic: Denies headache(s), Denies numbness and Denies weakness Endocrine Endocrine: Denies palpitations PFSH All Active Problems (Updated 07/27/23 @ 18:13 by Tania Glynn MD) Urinary tract infection (Acute) Achilles tendinitis, left leg (Acute) Peroneal tendonitis of left lower extremity (Acute) Lumbar radiculitis (Chronic) Spondylosis of lumbosacral region without myelopathy or radiculopathy (Acute) Back pain (Acute) Medical History Agoraphobia with panic attacks Ankle pain, right Arthralgia Chronic low back pain Cyclical vomiting Dental caries Depression with anxiety Family history of breast cancer Family history of diabetes mellitus Hx of bee sting allergy Hypothyroidism Obesity PTSD (post-traumatic stress disorder) Tobacco use disorder Social History Smoking/Tobacco Use Status: Current every day Tobacco Type: cigarettes Years smoked: 15 Tobacco: How many years used: 15 Smoking risk assessment performed?: Yes Alcohol Intake: current Alcohol Intake frequency: holidays/special occasions only Alcohol type: beer Drug use: Occasionally Substance use type: marijuana Details: CBD oil to help with pain, puts in her coffee Current gender identity: female Do you feel safe at home: Yes Do you feel safe in your relationship?: Yes Exam Const General: no acute distress, well developed, well groomed and not in acute distress Nutritional Appearance: well nourished Orientation: alert and oriented x3 HENMT Head: normocephalic and atraumatic Ears: external ears normal Mouth: oropharynx normal and moist mucous membranes Throat: posterior oropharynx normal Eyes Conjunctivae: conjunctivae normal Neck Neck: full ROM and supple Chest Chest: normal inspection of the chest Resp Effort & Inspection: normal respiratory effort Auscultation: clear to auscultation bilaterally Cardio Rate: regular rate Rhythm: regular rhythm Heart Sounds: no murmurs and no rubs GI Inspection: normal to inspection (except obese) Palpation: soft, nontender and other (non distended) Auscultation: normal bowel sounds Back/Spine/Pelvis Back: no CVA tenderness Skin General skin exam: no rashes or lesions noted and other (pink, warm, dry) Neuro General: patient alert, patient awake and patient oriented x3 Speech: speech normal Motor: other (MADDOX) Sensory Exam: no sensory deficits noted Extrem General: normal to inspection, full ROM and pedal edema present Psych Mental Status: mental status grossly normal Speech and Movement: speech and movement normal Affect: normal affect Course Vital Signs Vital signs: Vital Signs Temperature 36.5 C 07/27/23 14:28 Pulse 70 07/27/23 14:28 Respiratory Rate 18 07/27/23 14:28 Blood Pressure 186/113 H 07/27/23 14:28 Pulse Oximetry 97 07/27/23 14:28 Temperature 36.5 C 07/27/23 14:28 Temperature Source Skin 07/27/23 14:28 Pulse 70 07/27/23 14:28 Respiratory Rate 18 07/27/23 14:28 Respiratory Effort Normal 07/27/23 14:32 Blood Pressure 186/113 H 07/27/23 14:28 Blood Pressure Position Sitting 07/27/23 14:28 Pulse Oximetry 97 07/27/23 14:28 Oxygen Delivery Method Room Air 07/27/23 14:28 Oxygen Flow Rate 0 07/27/23 14:28 Pain Level 7 07/27/23 14:28
[2023-07-27 15:10] LABS: Bilirubin Negative (Negative); Blood Large (Negative); Clarity Clear (Clear); Glucose Negative (Negative); Ketones Negative (Negative); Leukocyte Esterase Trace (Negative); Nitrite Negative (Negative); Specific Gravity 1.015 (1.005-1.025); Urobilinogen 0.2 mg/dL (Up to 0.2); pH 5.5 (5-8)
[2023-07-27 15:18] LABS: Bacteria Few HPF (Negative); C & S Indicated? Yes; Casts Negative LPF (Negative); Crystals Negative HPF (Negative); Epithelial Cells Few HPF (Negative); Mucus Negative (Negative)
[2023-07-27] MEDS: Ketorolac 15 MG/ML VIAL IVP (15:25)
[2023-07-27] MEDS: Normal Saline 1,000 ML 1000 ML IV (15:40)
[2023-07-27 15:41] LABS: Abs Immature Grans 0.03 10^3/uL (0.0-0.06); Absolute Basophil Count 0.07 10^3/uL (0.0-0.2); Absolute Eosinophil Count 0.37 10^3/uL (0.0-0.7); Absolute Lymphocyte Count 3.71 10^3/uL (1.2-3.4); Absolute Neutrophil Count 4.89 10^3/uL (1.2-6.7); Basophils % 0.7; Eosinophils % 3.7; HCT 43.1 % (36.0-46.0); HGB 13.9 g/dL (11.2-15.7); Immature Grans % 0.3; Lymphocytes % 37.6; MCH 28.7 pg (27.0-33.0); MCHC 32.3 % (32.0-36.0); MCV 89 fL (80-95); Monocytes % 8.1; Neutrophils % 49.6; Platelet Count 403 10^3/uL (130-400); RBC 4.85 10^6/uL (3.93-5.22); RDW 14.2 % (11.7-14.6); RDW-SD 45.9 fL; WBC 9.87 10^3/uL (4.4-10.8)
[2023-07-27 16:03] LABS: ALT 21 U/L (14-59); AST 11 U/L (15-37); Albumin 3.7 g/dL (3.4-5.0); Alkaline Phosphatase 71 U/L (46-116); Anion Gap 7.2 mmol/L (3-11); BUN 8 mg/dL (7-18); Bilirubin, Total 0.3 mg/dL (0.2-1.0); CO2 28.8 mmol/L (21.0-32.0); CREATININE 0.7 mg/dL (0.55-1.02); Calcium 9.6 mg/dL (8.5-10.1); Chloride 101 mmol/L (98-107); Estimated GFR 114.88 (mL/min/1.73m2); Glucose 143 mg/dL (74-106); Potassium 3.7 mmol/L (3.5-5.1); Sodium 137 mmol/L (136-145); Total Protein 8.5 g/dL (6.4-8.2)
--- NOTE | 2023-07-27 16:45 | DI.CT_ITS ---
Exam(s) CT ABDOMEN PELVIS WO EXAM: CT ABDOMEN PELVIS WO CLINICAL HISTORY: LBP, hematuria, dysuria. TECHNIQUE: Imaging Protocol: Axial computed tomography images with coronal and sagittal reformatted images were created and reviewed. COMPARISON: No exams were available for comparison FINDINGS: ABDOMEN: Lung Bases: Normal where visualized. Liver: Normal density. No measurable mass. Hepatomegaly. Gallbladder and biliary tract: Cholelithiasis. No biliary ductal dilatation. Pancreas: Normal density, no abnormal calcifications or inflammatory process. Spleen: Normal. Kidneys: Normal size, contour and axis.No radiodense stones or obstructive uropathy. No masses seen. Adrenal glands: No mass is seen. Lymph nodes: Within normal limits. Abdominal Aorta: Abdominal portion non-dilated. PELVIS: Bladder:There is mild diffuse thickening of the wall of the urinary bladder. The urinary bladder is underdistended. Bowel: No obstruction or bowel wall thickening. No evidence of appendicitis. Peritoneal cavity: No ascites, collection or mesenteric inflammatory response. No free air. Reproductive organs: Unremarkable as visualized. Bones: Within normal limits for the patient's age. Soft Tissues: Within normal limits. IMPRESSION: 1. No evidence of nephrolithiasis or hydronephrosis. 2. Cholelithiasis. No biliary ductal dilatation. RADIATION DOSE DELIVERED: 1,355.87mGy.cm Total DLP DATA REPOSITORY: All CT scans at this facility are submitted to the National Radiology Data Registry (NRDR) Dose Index Registry (DIR) with the [employer] (A[employer]). RADIATION OPTIMIZATION: All CT scans at this facility use at least one of these dose optimization te chniques: automated exposure control; mA and/or kV adjustment per patient size (includes targeted exa ms where dose is matched to clinical indication); or iterative reconstruction.
[2023-07-27] MEDS: cefTRIAXone 1 GM/50 ML BAG IVPB (17:30)
--- NOTE | 2023-07-27 18:08 | DI.VRAD_ITS ---
PROCEDURE INFORMATION: Exam: CT Abdomen And Pelvis Without Contrast Exam date and time: 07/27/2023 5:19 PM Age: 38 years old Clinical indication: Other: Low back pain, hematuria, dysuria; Patient HX: Lbp, hematuria, dysuria TECHNIQUE: Imaging protocol: Computed tomography of the abdomen and pelvis without contrast. COMPARISON: MR LOWER JOINT LT WO 11/01/2020 12:51 PM FINDINGS: Liver: No hepatic masses on noncontrast imaging. Hepatomegaly. Gallbladder and bile ducts: Cholelithiasis. No significant biliary dilation or radiopaque stones in the biliary tree. Pancreas: No gross pathology in the pancreas on noncontrast imaging. Spleen: No splenomegaly or focal lesions. Adrenal glands: No mass. Kidneys and ureters: No nephrolithiasis or collecting system obstruction. Stomach and bowel: Submucosal fat deposition in the colon, likely habitus and or diet related. No colitis or diverticular disease. Appendix: No evidence of appendicitis. Intraperitoneal space: No free air. No significant fluid collection. Vasculature: No abdominal aortic aneurysm. Lymph nodes: No significantly enlarged lymph nodes. Urinary bladder: Unremarkable as visualized. Reproductive: Unremarkable as visualized. Bones/joints: No acute fracture or subluxation. Soft tissues: Mild dependent subcutaneous edema. IMPRESSION: 1. No nephrolithiasis or collecting system obstruction. 2. Incidental findings as described. Dictated and Authenticated by: Ameena Henderson MD. Ordering:CHRISTOPHER Marin MD
== END 2023-07-27 18:32 | disposition home or self-care (01) ==
PROVIDERS: Student in an Organized Health Care Education/Training Program; Emergency Provider Emergency Medicine; PCP Family Medicine
DX: N39.0 Urinary tract infection, site not specified (principal)
CPT/HCPCS: 80053; 96361; 96365; 96375; 99284; 74176; 81003; 81015; 85025; 87086; J0696; J1885

== ENCOUNTER 2024-02-21 07:55 | Emergency (ER) | payer MEDICAID, SELFPAY ==
[2024-02-21 07:58] VITALS: BP 189/119; PULSE 81; RESP 18; TEMP 37.1; O2SAT 97
--- NOTE | 2024-02-21 08:40 | DI.RAD_ITS ---
Exam(s) XR KNEE LT 3V AP,LAT,CLYDE EXAM: XR KNEE LT 3V AP,LAT,CLYDE CLINICAL HISTORY: pain lateral knee. TECHNIQUE: 2D digital imaging was performed. COMPARISON: No exams were available for comparison FINDINGS: 3 views No evidence of fracture. Small amount of increased joint fluid noted. There is no joint space narro wing in the medial lateral compartments but there are some degenerative changes including marginal os teophytes off the outer and inner aspects of both medial lateral compartments. There are no osteocho ndral defects seen on the tunnel view. On the lateral view there also appears to be a calcific densi ty posteriorly but this is probably just the fabella. On the lateral view there is an osteophytic density noted anteriorly at the level the patellofemoral compartment which is difficult to assess without further views. IMPRESSION: Degenerative changes as above. If clinically indicated further views can be performed for better oliver luation of the patellofemoral compartment. DATA REPOSITORY: RADIATION DOSE DELIVERED:
[2024-02-21 09:20] VITALS: BP 151/99; PULSE 79; TEMP 36.7; O2SAT 95
--- NOTE | 2024-02-21 12:27 | W.ED.GENAD ---
Discharge Plan Disposition Patient Disposition: Home Condition: Stable Discharge Details Clinical Impression: Internal derangement of knee Primary Care Provider: Camryn Vyas ED Provider: Nilam Sandoval Home Meds and New Rx's Prescriptions: Continued omeprazole 20 mg capsule,delayed release(DR/EC) 20 mg PO DAILY cyclobenzaprine 10 mg tablet 10 mg PO TID hydroxyzine HCl 25 MG tablet 1 tab PO PRN PRN Rx Instructions: takes for nausea or anxiety gabapentin 400 MG capsule 800 mg PO TID Patient Comments: 400 mg TID, 100mgBID levothyroxine 88 MCG tablet 1 tab PO DAILY Patient Comments: pt. not sure of dose epinephrine 0.3 MG/SYR auto-injector 0.3 mg IJ PRN PRN cholecalciferol (vitamin D3) [Vitamin D3] 2,000 UNIT capsule 1 tab PO DAILY tramadol 50 mg tablet 50 mg PO TID PRN ibuprofen 200 mg Tablet 200 mg PO QID PRN Discharge Instructions Additional Instructions: motrin/ tylenol for pain voltaren gel topically follow-up with orthopedics order a knee brace online or you may try pharmacy, return earlier with new or worsening complaints: redness, swelling, fever Referrals: Misael Rodriguez MD [ [facility] ST[facility]FF PHYSICIAN] - HPI General Date/Time Provider Initiated Documentation: 02/21/24 08:09. HPI Narrative: This 39-year-old female presents with left knee pain. States she went mining 2 weeks ago and about a week later developed a clicking sensation in her left knee. States she has pain and a clicking sensation when she applies pressure and turned. She denies specific trauma. Denies any chance of or any additional complaints at this time. Denies any fever or chills. Related Data Home Medications Medication Instructions Recorded Confirmed cholecalciferol (vitamin D3) 50 1 tab PO DAILY 11/30/14 02/21/24 mcg (2,000 unit) capsule (Vitamin D3) epinephrine 0.3 mg/0.3 mL 0.3 mg IJ PRN PRN 11/30/14 02/21/24 injection, auto-injector gabapentin 400 mg capsule 800 mg PO TID 11/30/14 02/21/24 hydroxyzine HCl 25 mg tablet 1 tab PO PRN PRN 11/30/14 02/21/24 levothyroxine 88 mcg tablet 1 tab PO DAILY 11/30/14 02/21/24 cyclobenzaprine 10 mg tablet 10 mg PO TID 01/14/19 02/21/24 omeprazole 20 mg capsule,delayed 20 mg PO DAILY 01/14/19 02/21/24 release tramadol 50 mg tablet 50 mg PO TID PRN 01/14/19 02/21/24 ibuprofen 200 mg tablet 200 mg PO QID PRN 02/11/19 02/21/24 Allergies Allergy/AdvReac Type Severity Reaction Status Date / Time venom-honey bee Allergy Severe Anaphylaxsi Unverified 02/21/24 08:02 [bee venom (honey bee)] s High Doses of Acetaminophen AdvReac Unknown Other (See Uncoded 02/21/24 08:02 Comment) General Stated Complaint: Orthopedic MARTA: 4 Exam Narrative Exam Narrative: Alert and oriented 39-year-old female with left knee pain, reproducible tenderness with Christina's, neurovascularly intact, no tenderness to left hip no calf swelling or tenderness, no obvious improved effusion appreciated on knee, no evidence of septic joint Course Vital Signs Vital signs: Vital Signs Temperature 37.1 C 02/21/24 07:58 Pulse 81 02/21/24 07:58 Respiratory Rate 18 02/21/24 07:58 Blood Pressure 189/119 H 02/21/24 07:58 Pulse Oximetry 97 02/21/24 07:58 Temperature 36.7 C 02/21/24 09:20 Temperature Source Tympanic 02/21/24 09:20 Pulse 79 02/21/24 09:20 Respiratory Rate 18 02/21/24 07:58 Respiratory Effort Normal, Non-Labored 02/21/24 08:04 Blood Pressure 151/99 H 02/21/24 09:20 Pulse Oximetry 95 02/21/24 09:20 Oxygen Delivery Method Room Air 02/21/24 09:20 Oxygen Flow Rate 0 02/21/24 09:20 Medical Decision Making Alert and oriented 39-year-old female presenting with left knee pain, exam reassuring, degenerative changes on x-ray which was ordered per radiology interpretation my review Unfortunately we do not have the splint available for the patient she will purchase one [id number] and will have her call orthopedics for follow-up I suspect she has meniscal injury based on my clinical exam there is no evidence of septic arthritis clinically No evidence of DVT Return precautions reviewed and patient expressed understanding Quality:SDOH Health Related Social Needs: No Data to Display PFSH All Active Problems (Updated 02/21/24 @ 08:49 by KIM Vanegas) Internal derangement of knee (Acute) Achilles tendinitis, left leg (Acute) Peroneal tendonitis of left lower extremity (Acute) Lumbar radiculitis (Chronic) Spondylosis of lumbosacral region without myelopathy or radiculopathy (Acute) Back pain (Acute) Medical History Agoraphobia with panic attacks Ankle pain, right Arthralgia Chronic low back pain Cyclical vomiting Dental caries Depression with anxiety Family history of breast cancer Family history of diabetes mellitus Hx of bee sting allergy Hypothyroidism Obesity PTSD (post-traumatic stress disorder) Tobacco use disorder Social History Smoking/Tobacco Use Status: Current every day Tobacco Type: cigarettes Years smoked: 15 and e-cigarettes Tobacco: How many years used: 15 Smoking risk assessment performed?: Yes Alcohol Intake: current Alcohol Intake frequency: holidays/special occasions only Alcohol type: beer Drug use: Occasionally Substance use type: marijuana Details: CBD oil to help with pain, puts in her coffee Current gender identity: female Do you feel safe at home: Yes Do you feel safe in your relationship?: Yes
== END 2024-02-21 09:58 | disposition home or self-care (01) ==
PROVIDERS: Emergency Provider Physician Assistant; PCP Family Medicine
DX: M23.8X2 Other internal derangements of left knee (principal); F17.290 Nicotine dependence, other tobacco product, uncomplicated
CPT/HCPCS: 73562; 99283

== ENCOUNTER → 2024-03-23 03:03 | Outpatient (CLI) | payer MEDICAID, SELFPAY ==
--- NOTE | 2024-03-23 11:15 | DI.MRI_ITS ---
Exam(s) MR LOWER JOINT LT WO EXAM: MR LOWER JOINT LT WO CLINICAL HISTORY: PAIN lt knee, internal derangement, M23.92. TECHNIQUE: Multiplanar multisequence MRI was performed. COMPARISON: CR XR KNEE LT 3V AP,LAT,CLYDE from 02/21/2024 FINDINGS: BONES: There is no fracture or contusion pattern. Note is made of marrow reconversion. There osteoph ytes seen in all 3 joint compartments. JOINTS: There is loss of the articular cartilage in the lateral patellar facet. Mild subchondral jonah ma is seen inferiorly in the lateral patella. There is also lateral subluxation of the patella. The re is a small amount of fluid in the joint space. TENDONS: Extensor mechanism: Unremarkable. Medial retinaculum: Unremarkable. Lateral retinaculum: Unremarkable. Popliteus: Unremarkable. MUSCLES: Unremarkable. MENISCI: There is degenerative signal seen in the posterior horn of the medial meniscus. The lateral meniscus is unremarkable. SOFT TISSUES: There is mild edema seen anterior to the patella. LIGAMENTS: Anterior Cruciate: Unremarkable. Posterior Cruciate: Unremarkable. Medial Collateral:Unremarkable. Lateral Collateral: Unremarkable. OTHER: IMPRESSION: 1. Tricompartment degenerative changes in the knee. The findings are most marked in the lateral juan lla femoral joint with loss of the articular cartilage. 2. Lateral subluxation of the patella. 3. Degenerative changes seen in the medial meniscus. 4. No evidence of a ligament tear. DATA REPOSITORY:
== END ==
PROVIDERS: PCP Family Medicine; Visit Provider Student in an Organized Health Care Education/Training Program
DX: M17.12 Unilateral primary osteoarthritis, left knee (principal)
CPT/HCPCS: 73721

== ENCOUNTER → 2024-06-08 10:10 | Outpatient (BNVA) | payer MEDICARE, MEDICAID, SELFPAY | PROVIDERS: PCP Family Medicine; Visit Provider Student in an Organized Health Care Education/Training Program | DX: M22.8X2 Other disorders of patella, left knee (principal); M17.12 Unilateral primary osteoarthritis, left knee | CPT/HCPCS: 99213 ==

== ENCOUNTER 2024-10-02 21:17 | Outpatient (REF) | payer MEDICARE, MEDICAID, SELFPAY ==
--- OUTSIDE RECORDS SUMMARY | 2024-10-02 21:19 | XMS_ITS | Encounter Summary ---
Author Organization [facility] Address [address] [place] [address] Care Team Providers Care Needle Polisher Name Role Phone Unavailable Primary Care Provider Unavailabl e Encounter Details Date Type Department Care Team (Late st Contact Info) Description 11/30/2022 Lab Requisition [facility] Pathology & Laboratory Medicine - [facility] [address] [place] [address] Outr Resulting Lab, Provider Social History Tobacco Use Types Packs/Day Years Used Date Smoking Tobacco: Never Assessed Comments Unknown Sex and Gender Information Value Date Recorded Sex Assigned at Not on file Legal Sex Female 17:30 EDT Gender Identity Not on file Sexual Orientation Not on file documented as of this encounter Plan of Treatment Not on file documented as of this encounter Procedures Procedure Name Priority Date/Time Associated Diagnosis Comments ZZCOVID-19 TEST [facility] PCR Today 11/30/2022 16:15 EST COVID-19 TESTING Routine 11/30/2022 16:1 5 EST documented in this encounter Results * COVID-19 TEST [facility] PCR (11/30/2022 16:15 EST) Swab 11/30/2022 16:1 5 EST 12/01/2022 21:19 EST us Provider Outr Resulting Lab MICROBIOLOGY - GENER AL ORDERABLES Final Result [facility] [address] [place] [address] * COVID-19 TESTING (11/30/2022 16:15 EST) COVID-19 rt-PCR Result Negative Negative 12/02/2022 11:31 EST [facility] Comment: This test has not been FDA cleared or approved. This test has been authorized by FDA under an EUA for use by authorized laboratories. This test has been authorized only for detection of nucleic acid from 2019-nCoV, not for any other viruses or pathogens. This test is only authorized for the duration of the declaration that circumstances exist justifying the authorization of emergency use of in vitro diagnostic tests for detection and/or diagnosis of 2019-nCoV under section 564(b)(1) of Act, 21 U.S.C ?? 360bbb-3(b) (1), unless the authorization is terminated or revoked sooner. Negative results do not preclude 2019-nCoV infection and should not be used as the sole basis for treatment or other patient management decisions. Negative results must be combined with clinical observations, patient history, and epidemiological information. Testing was performed using the daylin SARS-CoV-2 assay ([employer] on the Daylin 6800 System Performing Lab [employer] [address] [facility] 12/02/2022 11:31 EST [facility] Swab 11/30/2022 16:1 5 EST 12/01/2022 21:19 EST us Provider Outr Resulting Lab MICROBIOLOGY - GENER AL ORDERABLES Final Result [facility] [address] [place] [address] documented in this encounter Visit Diagnoses Not on filedocumented in this encounter
--- OUTSIDE RECORDS SUMMARY | 2024-10-02 21:19 | XMS_ITS | Clinical Summary ---
Author Organization [facility] Address [address] [place] [address] Care Team Providers Care Medical Claims Representative Name Role Phone Unavailable Primary Care Provider Unavailabl e Social History Tobacco Use Types Packs/Day Years Used Date Smoking Tobacco: Never Assessed Comments Unknown Sex and Gender Information Value Date Recorded Sex Assigned at Not on file Legal Sex Female 17:30 EDT Gender Identity Not on file Sexual Orientation Not on file Plan of Treatment Health Maintenance Due Date Last Done Comments Hepatitis C Screen 1987 Hepatitis B Vaccine (1 of 3 - 19+ 3-dose series) 01/13 COVID-19 Vaccine ( season) 2024
--- OUTSIDE RECORDS SUMMARY | 2024-10-02 21:19 | XMS_ITS | Clinical Summary ---
[place] [address] Care Team Providers Care City Manager Name Role Phone Renetta Hyde APRN Primary Care Provider [phone] Medications No known medications Active Problems Problem Noted Date Diagnosed Date Chronic low back pain 10/03/2016 Social History Tobacco Use Types Packs/Day Years Used Date Smoking Tobacco: Never Assessed Sex and Gender Information Value Date Recorded Sex Assigned at Not on file Gender Identity Not on file Sexual Orientation Not on file Plan of Treatment Health Maintenance Due Date Last Done Comments HIV screen 2005 Hepatitis C Screening 2005 Hepatitis B vaccine (0-59 yrs) (1) 2006 Tetanus/Diphtheria/Pertussis Vaccines (1 - Tdap) 01/13 HPV test 2017 PAP Smear 2017 Covid-19 Vaccine ( - 2023- season) 2024 Influenza (Flu) vaccine (1 o f 1 - Influenza standard series) 06/21/2024 Care Teams City Manager Relationship Specialty Start Date End Date Renetta Hyde APRN [address] [place] [address] PCP - General 11/05/14
--- OUTSIDE RECORDS SUMMARY | 2024-10-02 21:19 | XMS_ITS | Encounter Summary ---
Author Organization [facility] Address [address] [place] [address] Care Team Providers Care Maintenance Mechanic Millwright Name Role Phone Unavailable Primary Care Provider Unavailabl e Encounter Details Date Type Department Care Team (Late st Contact Info) Description 08/24/2021 Lab Requisition [facility] Pathology & Laboratory Medicine - [facility] [address] [place] [address] Outr Resulting Lab, Provider Social History Tobacco [...] Procedure Name Priority Date/Time Associated Diagnosis Comments LYME AB Routine 08/24/2021 7:45 EDT documented in this encounter Results * LYME AB (08/24/2021 7:45 EDT) Lyme Ab Negative Negative 08/25/2021 10:38 EDT [facility] Blood VENOUS BLOOD / Unknown 08/24/2021 7:45 EDT 08/24/2021 21:21 EDT us Provider Outr Resulting Lab IMMUNOLOGY AND SEROL OGY ORDERABLES Final Result [facility] [address] [place] [address] documented in this encounter Visit Diagnoses Not on filedocumented in this encounter
--- OUTSIDE RECORDS SUMMARY | 2024-10-02 21:19 | XMS_ITS | Encounter Summary ---
Author Organization [facility] Address [address] [place] [address] Care Team Providers Care Motion Picture Projectionist Name Role Phone Unavailable Primary Care Provider Unavailabl e Encounter Details Date Type Department Care Team (Late st Contact Info) Description 12/01/2022 Lab Requisition [facility] Pathology & Laboratory Medicine - [facility] [address] [place] [address] Outr Resulting Lab, Provider Social History Tobacco [...] Procedure Name Priority Date/Time Associated Diagnosis Comments FECAL BACTERIAL PATHOGENS BY PCR Routine 11/30/2022 16:15 EST GIARDIA AND CRYPTOSPORIDIUM ANTIGENS Routine 11/30/2022 16:15 EST OVA/PARASITE EXAM Routine 11/30/2022 16: 15 EST documented in this encounter Results * GIARDIA AND CRYPTOSPORIDIUM ANTIGENS (11/30/2022 16:15 EST) Giardia and Cryptosporidium Cryptosporidium Antigen Neg and Giardia Antigen Neg Cryptosporidium Antigen Neg and Giardia Antigen Neg 9:59 EST [facility] Feces SPECIMEN FROM RECTUM / Unknown 11/30/2022 16:15 EST 12/02/2022 18:05 EST us Provider Outr Resulting Lab MICROBIOLOGY - GENER AL ORDERABLES Final Result [facility] [address] [place] [address] * FECAL BACTERIAL PATHOGENS BY PCR (11/30/2022 16:15 EST) Salmonella PCR Negative Negative 12/02/2022 22:03 EST [facility] Shigella/Enteroin vasive E. coli Negative Negative 12/02/2022 22:03 EST [facility] HN LAB CAMPYLOBACTER PCR Negative Negative 12/02/2022 22:03 EST [facility] Shiga Toxin PCR Negative Negative 22:03 EST [facility] Feces SPECIMEN FROM RECTUM / Unknown 11/30/2022 16:15 EST 12/02/2022 18:05 EST us Provider Outr Resulting Lab MICROBIOLOGY - GENER AL ORDERABLES Final Result Performing Organization Address [facility] Co de Phone Number [facility] [address] [place] [address] * OVA/PARASITE EXAM (11/30/2022 16:15 EST) Parasite No ova and parasites seen. 12/03/2022 15:01 EST [facility] Feces SPECIMEN FROM RECTUM / Unknown 11/30/2022 16:15 EST 12/02/2022 18:05 EST Narrative [facility] - 12/03/2022 15:01 EST (If Cryptosporidium, Cyclospora, or Microsporidium are suspected, specific tests must be requested.) Single negative specimen does not rule out the possibility of a parasitic infection. us Provider Outr Resulting Lab MICROBIOLOGY - GENER AL ORDERABLES Final Result Performing Organization Address [facility]/ZIP Co de Phone Number [facility] [address] [place] [address] documented in this encounter Visit Diagnoses Not on filedocumented in this encounter
--- OUTSIDE RECORDS SUMMARY | 2024-10-02 21:19 | XMS_ITS | Encounter Summary ---
Author Organization [facility] [place] [address] Care Team Providers Care Developer Architect Name Role Phone Renetta Hyde APRN Primary Care Provider [phone] Reason for Visit * Reason Onset Date Comments Medication Refill 10/03/2016 Encounter Details Date Type Department Care Team (Late st Contact Info) Description 10/03/2016 Refill [place] [address] Landon Dumont MD [facility] [address] Chronic left-sided low back pain with left-sided sciatica Social History Tobacco Use Types Packs/Day Years Used Date Smoking Tobacco: Never Assessed Sex and Gender Information Value Date Recorded Sex Assigned at Not on file Gender Identity Not on file Sexual Orientation Not on file documented as of this encounter Plan of Treatment Not on file documented as of this encounter Visit Diagnoses Diagnosis Chronic left-sided low back pain with left-sided sciatica documented in this encounter Care Teams Developer Architect Relationship Specialty Start Date End Date Renetta Hyde APRN [address] [place] [address] PCP - General 11/05/14 documented as of this encounter
--- OUTSIDE RECORDS SUMMARY | 2024-10-02 21:19 | XMS_ITS | Encounter Summary ---
Author Organization [facility] Address [address] [place] [address] Care Team Providers Care Boat Outboard Engine Mechanic Name Role Phone Unavailable Primary Care Provider Unavailabl e Encounter Details Date Type Department Care Team (Late st Contact Info) Description 04/27/2023 Lab Requisition [facility] Pathology & Laboratory Medicine - [facility] [address] [place] [address] Outr Resulting Lab, Provider Social History Tobacco [...] Procedure Name Priority Date/Time Associated Diagnosis Comments CHLAMYDIA/N. GONORRHOEAE AMPLIFIED NUCLEIC ACID Routine 04/26/2023 16:00 EDT documented in this encounter Results * CHLAMYDIA/N. GONORRHOEAE AMPLIFIED RNA (04/26/2023 16:00 EDT) Neisseria gonorrhoeae Result Negative Negative 04/28/2023 12:13 EDT [facility] Chlamydia trachomatis Result Negative Negative 04/28/2023 12:13 EDT [facility] Swab ENTIRE VAGINA / Unknown 04/26/2023 16:00 EDT 04/27/2023 22:01 EDT us Provider Outr Resulting Lab MICROBIOLOGY - GENER AL ORDERABLES Final Result [facility] [address] [place] [address] documented in this encounter Visit Diagnoses Not on filedocumented in this encounter
--- OUTSIDE RECORDS SUMMARY | 2024-10-02 21:19 | XMS_ITS | Referral Summary ---
Author Organization [facility] Address [address] [place] [address] Care Team Providers Care Facilities Operator Name Role Phone Unavailable Primary Care Provider Unavailabl e Social History Tobacco Use Types Packs/Day Years Used Date Smoking Tobacco: Never Assessed Comments Unknown Sex and Gender Information Value Date Recorded Sex Assigned at Not on file Legal Sex Female 17:30 EDT Gender Identity Not on file Sexual Orientation Not on file Plan of Treatment Not on file
[2024-10-02 21:45] LABS: HCT 39.3 % (36.0-46.0); HGB 12.6 g/dL (11.2-15.7); MCH 29.5 pg (27.0-33.0); MCHC 32.1 % (32.0-36.0); MCV 92 fL (80-95); MPV 10.7 fL (8.0-11.0); Platelet Count 445 10^3/uL (130-400); RBC 4.27 10^6/uL (3.93-5.22); RDW 13.4 % (11.7-14.6); RDW-SD 45.9 fL; WBC 8.36 10^3/uL (4.4-10.8)
[2024-10-02 21:48] LABS: ESR 31 mm/hr (0-20)
[2024-10-02 21:55] LABS: Albumin 3.6 g/dL (3.4-5.0); Anion Gap 7.1 mmol/L (3-11); BUN 10 mg/dL (7-18); CO2 29.9 mmol/L (21.0-32.0); CREATININE 0.9 mg/dL (0.55-1.02); Chloride 104 mmol/L (98-107); Estimated GFR 84.44 (mL/min/1.73m2); Glucose 122 mg/dL (74-106); Potassium 4.3 mmol/L (3.5-5.1); Sodium 141 mmol/L (136-145)
[2024-10-02 22:21] LABS: ALT 23 U/L (14-59); AST 15 U/L (15-37); Alkaline Phosphatase 66 U/L (46-116); Bilirubin, Total 0.17 mg/dL (0.2-1.0); C-Reactive Protein 1.22 mg/dL (<or=0.5); Total Protein 7.6 g/dL (6.4-8.2)
[2024-10-02 22:39] LABS: FREE T4 0.87 ng/dL (0.76-1.46)
[2024-10-03 21:51] LABS: Rheumatoid Factor <8.6 IU/mL (<12.0)
[2024-10-05 10:16] LABS: Lyme Ab w Rflx to Lyme Confirm Negative (Negative)
[2024-10-05 13:56] LABS: ANA Interpretation Negative (Negative)
[2024-10-06 13:17] LABS: Anaplasma phagocytophilum Negative (Negative); B. miyamotoi PCR Negative (Negative); Babesia divergens/MO-1 Negative (Negative); Babesia duncani Negative (Negative); Babesia microti Negative (Negative); Ehrlichia chaffeensis Negative (Negative); Ehrlichia ewingii/canis Negative (Negative); Ehrlichia muris eauclairensis Negative (Negative)
== END 2024-10-02 21:18 | disposition home or self-care (01) ==
LOC: NCHCN 21:17
PROVIDERS: PCP Family Medicine; Visit Provider Family Medicine
DX: M25.50 Pain in unspecified joint (principal)
CPT/HCPCS: 80053; 85027; 85652; 87798; 84439; 84443; 86038; 86140; 86431; 86618

== ENCOUNTER 2025-06-04 14:38 | Emergency (ER) | payer MEDICARE, MEDICAID, SELFPAY ==
[2025-06-04 14:41] VITALS: BP 158/103; PULSE 96; RESP 16; TEMP 36.3; O2SAT 96
--- NOTE | 2025-06-04 15:00 | DI.CT_ITS ---
Exam(s) CT ABDOMEN PELVIS W EXAM: CT ABDOMEN PELVIS W CLINICAL HISTORY: N/V, dysuria, pelvic pain TECHNIQUE: Imaging Protocol: Axial computed tomography images with coronal and sagittal reformatted images were created and reviewed. CONTRAST MATERIAL: Intravenous: Omnipaque 350 Contrast volume:100 mL Oral: No COMPARISON: CT CT ABDOMEN PELVIS WO from 07/27/2023 FINDINGS: ABDOMEN: Lung Bases: No acute abnormality. Liver: There is diffuse decreased attenuation of the liver consistent with fatty infiltration. The liver is enlarged. No measurable mass. Portal, Superior Mesenteric, and Splenic Veins: Unremarkable. Gallbladder and Biliary Tract: There are gallstones present. There is no biliary ductal dilatation. Pancreas: Normal density, no abnormal calcifications or inflammatory process. Spleen: Normal. Adrenals: No masses seen. Kidneys: Normal size, contour and axis. No radiodense stones or obstructive uropathy. No masses seen. Abdominal Aorta: Abdominal portion non-dilated. Bowel: There are few diverticula seen in the sigmoid colon, but no evidence of acute diverticulitis. There is no evidence of bowel obstruction or bowel wall thickening. There is no evidence of pneumatosis. Appendix is unremarkable. Peritoneal Cavity: No ascites, collection or mesenteric inflammatory response. No free air. Lymph Nodes: Within normal limits. Bones: Within normal limits for the patient's age. Soft Tissues: Unremarkable. PELVIS: Bladder: The urinary bladder is incompletely distended limiting evaluation. There is some thickening of the wall of the urinary bladder, however, this could be secondary to the incomplete distention. Cystitis cannot be excluded. Reproductive Organs: Unremarkable as visualized. Lymph Nodes: Within normal limits. Bones: Within normal limits for the patient's age. IMPRESSION: 1. Thickening of the wall of the urinary bladder. This may be due to underdistention however. Cystitis cannot be entirely excluded. Please correlate clinically. 2. Otherwise, no acute abdominal or pelvic process is seen. RADIATION DOSE DELIVERED: 1,237.7mGy.cm Total DLP DATA REPOSITORY: All CT scans at this facility are submitted to the National Radiology Data Registry (NRDR) Dose Index Registry (DIR) with the [employer] (ACR). RADIATION OPTIMIZATION: All CT scans at this facility use at least one of these dose optimization techniques: automated exposure control; mA and/or kV adjustment per patient size (includes targeted exams where dose is matched to clinical indication); or iterative reconstruction.
[2025-06-04 15:20] LABS: Glucose 500 mg/dL (Negative)
[2025-06-04] MEDS: Ondansetron 4 MG/2 ML VIAL IVP (15:31)
[2025-06-04] MEDS: Ketorolac 15 MG/ML VIAL IVP (15:31)
[2025-06-04 15:38] LABS: Abs Immature Grans 0.04 10^3/uL (0.0-0.06); HCT 41.3 % (36.0-46.0); HGB 13.6 g/dL (11.2-15.7); Immature Grans % 0.5 %; MCH 28.5 pg (27.0-33.0); MCHC 32.9 % (32.0-36.0); MCV 87 fL (80-95); MPV 10.8 fL (8.0-11.0); Platelet Count 358 10^3/uL (130-400); RBC 4.77 10^6/uL (3.93-5.22); RDW 13.0 % (11.7-14.6); RDW-SD 40.9 fL; WBC 8.45 10^3/uL (4.4-10.8)
--- NOTE | 2025-06-04 15:41 | W.ED.GENAD ---
Discharge Plan Disposition Patient Disposition: Home Condition: Stable Discharge Details Clinical Impression: Diabetes Primary Care Provider: Camryn Vyas ED Provider: Mecca Blake Home Meds and New Rx's Prescriptions: New metformin 500 mg tablet 500 mg PO BID Qty: 60 0RF (DME) blood-glucose meter [Blood Glucose Monitoring] Kit See Rx Instructions .Route Qty: 1 0RF Rx Instructions: As directed No Action omeprazole 20 mg capsule,delayed release(DR/EC) 20 mg PO DAILY cyclobenzaprine 10 mg tablet 10 mg PO TID ibuprofen 200 mg tablet 800 mg PO TID PRN hydroxyzine HCl 25 MG tablet 1 tab PO PRN PRN Rx Instructions: takes for nausea or anxiety levothyroxine 88 MCG tablet 1 tab PO DAILY Patient Comments: pt. not sure of dose epinephrine 0.3 MG/SYR auto-injector 0.3 mg IJ PRN PRN cholecalciferol (vitamin D3) [Vitamin D3] 2,000 UNIT capsule 1 tab PO DAILY tramadol 50 mg tablet 50 mg PO TID PRN gabapentin 400 mg capsule 800 mg PO BID dextroamphetamine-amphetamine 20 mg capsule,extended release 24hr 40 mg PO DAILY Discharge Instructions Instructions: High Blood Sugar, Adult ED Additional Instructions: You were seen in the emergency department today for evaluation of frequent urination and pain when you urinate as well as general fatigue, and were found to have laboratory studies concerning for diabetes. You reassuringly do not have any sign of urinary tract infection, and your CT of your abdomen and pelvis did not show any other abnormalities which might explain your symptoms. Your A1c was quite elevated, greater than 13, this is the test that we used to determine how high your blood sugar has been over a period of time. Because it is this high we have started you on a medication called metformin, which you will take twice per day until it is adjusted by your primary care provider at your next visit. This medication can cause diarrhea, and if you are unable to tolerate the medication you should call your primary care doctor immediately to discuss alternatives. I recommend reducing your intake of sugary drinks and foods, and increasing your intake of whole grains, complex carbohydrates, and proteins. Reasons to come back to the emergency department include nausea or vomiting which prevents you from maintaining your hydration, change in mental status, fever or chills, or any other symptoms that cause you concern. Please follow-up with your primary care provider in the next few days to discuss this visit and any symptoms that change, worsen, or persist. Thank you for allowing us to be part of your care. HPI General Mode of arrival: ambulatory. Date/Time Provider Initiated Documentation: 06/04/25 14:39. Limitations to Documentation: no limitations. Information obtained by: patient and old records reviewed. HPI Narrative: This is a 40-year-old female patient with a past medical history significant for fibromyalgia and numerous musculoskeletal pain syndromes, a history of excessively painful periods, who is presenting for evaluation of 1 to 2 weeks of general malaise, dysuria, nausea with vomiting and pelvic pain. The patient reports that her symptoms have gradually worsened over the last week or so, she feels generally unwell, has had a subjective fever, and notices that her pelvic pain was significantly worse during her last period, which ended approximately 2 weeks ago. She states that she has had increasing thirst, and has had urinary urgency and frequency due to her increased water intake. She is currently experiencing dysuria, has not noted any hematuria. She has had a poor appetite, and several episodes of vomiting today. She reports that she has right sided back pain and feels like her kidneys are hurting. The patient reports that she did take 2 days worth of amoxicillin which she had leftover from a UTI a few years ago. She has otherwise been managing her symptoms with Tylenol and ibuprofen. She started to take Azo [id number] a few days ago without significant improvement. Denies a history of abdominal surgeries. Related Data Home Medications ?Medication ?Instructions ?Recorded ?Confirmed cholecalciferol (vitamin D3) 50 1 tab PO DAILY 11/30/14 06/04/25 mcg (2,000 unit) capsule (Vitamin D3) epinephrine 0.3 mg/0.3 mL 0.3 mg IJ PRN PRN 11/30/14 06/04/25 injection, auto-injector hydroxyzine HCl 25 mg tablet 1 tab PO PRN PRN 11/30/14 06/04/25 levothyroxine 88 mcg tablet 1 tab PO DAILY 11/30/14 06/04/25 cyclobenzaprine 10 mg tablet 10 mg PO TID 01/14/19 06/04/25 omeprazole 20 mg capsule,delayed 20 mg PO DAILY 01/14/19 06/04/25 release tramadol 50 mg tablet 50 mg PO TID PRN 01/14/19 06/04/25 ibuprofen 200 mg tablet 800 mg PO TID PRN 02/27/24 06/04/25 gabapentin 400 mg capsule 800 mg PO BID 04/13/24 06/04/25 blood-glucose meter (Blood Glucose #1 ea 06/04/25 Monitoring kit) dextroamphetamine-amphetamine ER 40 mg PO DAILY 06/04/25 06/04/25 20 mg 24hr capsule,extend release metformin 500 mg tablet 500 mg PO BID #60 tabs 06/04/25 Previous Rx's ?Medication ?Instructions ?Recorded blood-glucose meter (Blood Glucose #1 ea 06/04/25 Monitoring kit) metformin 500 mg tablet 500 mg PO BID #60 tabs 06/04/25 Allergies Allergy/AdvReac Type Severity Reaction Status Date / Time venom-honey bee (bee venom Allergy Severe Anaphylaxsi Unverified 06/04/25 14:48 (honey bee)) s High Doses of Acetaminophen AdvReac Unknown Other (See Uncoded 06/04/25 14:48 Comment) General Stated Complaint: Urinary MARTA: 3 Exam Narrative Exam Narrative: Gen: Awake and alert, in no apparent distress HEENT: Non-icteric sclera Neck: Supple Lungs: No apparent respiratory distress, normal respiratory effort. CV: Appears well perfused, heart with regular rate and rhythm, strong distal pulses Abdomen: Non-distended, soft, minimal tenderness to palpation in the pelvic region, no rigidity, rebound, or guarding. No CVA tenderness, Connolly sign negative. MSK: Moves 4 extremities without apparent limitation in ROM Skin: Visualized skin without rashes, cyanosis. Neuro: Normal Gait, no obvious focal deficits or facial asymmetry. Speaks in full, clear sentences. Psych: Appropriate for situation. Course Vital Signs Vital signs: Vital Signs Temperature 36.3 C L 06/04/25 14:41 Pulse 96 H 06/04/25 14:41 Respiratory Rate 16 06/04/25 14:41 Blood Pressure 158/103 H 06/04/25 14:41 Pulse Oximetry 96 06/04/25 14:41 Temperature 36.3 C L 06/04/25 14:41 Temperature Source Oral 06/04/25 14:41 Pulse 96 H 06/04/25 14:41 Respiratory Rate 16 06/04/25 14:41 Blood Pressure 158/103 H 06/04/25 14:41 Blood Pressure Position Sitting 06/04/25 14:41 Pulse Oximetry 96 06/04/25 14:41 Oxygen Delivery Method Room Air 06/04/25 14:41 Oxygen Flow Rate 0 06/04/25 14:41 Lab/Test Results Lab/Test Results: Laboratory Tests Range/Units 06/04/25 06/04/25 15:12 15:27 WBC (4.4-10.8) 10^3/uL 8.45 RBC (3.93-5.22) 10^6/uL 4.77 Hgb (11.2-15.7) g/dL 13.6 Hct (36.0-46.0) % 41.3 MCV (80-95) fL 87 MCH (27.0-33.0) pg 28.5 MCHC (32.0-36.0) % 32.9 RDW (11.7-14.6) % 13.0 Plt Count (130-400) 10^3/uL 358 MPV (8.0-11.0) fL 10.8 Immature Gran % % 0.5 Neutrophils % % 65.3 Lymphocytes % % 24.7 Monocytes % % 6.7 Eosinophils % % 1.9 Basophils % % 0.9 Nucleated RBC % (0.0-0.3) % 0.0 Absolute Neutrophils (1.2-6.7) 10^3/uL 5.51 Absolute Lymphocytes (1.2-3.4) 10^3/uL 2.09 Absolute Monocytes (0.1-0.8) 10^3/uL 0.57 Absolute Eosinophils (0.0-0.7) 10^3/uL 0.16 Absolute Basophils (0.0-0.2) 10^3/uL 0.08 Urine Color (Yellow) Yellow Urine Clarity (Clear) Clear Urine pH (5-8) 5.5 Ur Specific [place] (1.005-1.025) 1.010 Urine Protein (Neg-Trace) mg/dL Negative Urine Ketones (Negative) mg/dL Negative Urine Blood (Negative) Negative Urine Nitrite (Negative) Negative Urine Bilirubin (Negative) Negative Urine Urobilinogen (Up to 0.2) mg/dL 0.2 Ur Leukocyte Esterase (Negative) Negative Urine Glucose (Negative) mg/dL 500 H Medical Decision Making This is a 40-year-old female patient presenting for evaluation of 2 weeks of dysuria and urinary frequency, nausea with vomiting and pelvic/right flank pain. My differential includes, but is not limited to, gastritis/PUD, gastroenteritis, pancreatitis, cholecystitis and gallbladder pathology, hepatitis, appendicitis, diverticulitis, small bowel obstruction. Considered urinary pathology including UTI, nephrolithiasis. Considered mesenteric ischemia, aortic pathology, though this is less concerning based on the patient's history and physical exam. Considered ectopic , PID/TOA, ovarian cyst, ovarian torsion. I considered metabolic electrolyte derangements, dehydration, kidney injury, diabetes, liver injury, anemia. We will provide the patient with Toradol and Zofran for initial management of symptoms. I will obtain laboratory studies to include CBC, CMP, magnesium, urinalysis, and [id number] screen. Given the broad variety of symptoms that are not isolated to urinary tract infection symptoms alone, it is reasonable to proceed with CT of the abdomen and pelvis to better characterize any abnormalities which might be causing the patient's symptoms. - I independently interpreted the laboratory studies, which show no significant leukocytosis, anemia, or thrombocytopenia. The chemistry panel is without evidence of electrolyte abnormality, kidney dysfunction, or liver injury. I do note that the patient has a markedly elevated glucose to 466, and added on a hemoglobin A1c that was over 13%. She has no associated evidence of acidosis or elevated anion gap, and her urinalysis shows glucosuria without ketonuria or evidence of urinary tract infection. The patient CT was reviewed by myself and shows no acute abnormalities to otherwise explain the patient's symptoms. I had an extended conversation with her regarding her new diagnosis of diabetes, based on A1c and random blood glucose elevation with characteristic symptoms. She is maintaining her hydration and does not have evidence of HHS or diabetic ketoacidosis, but would benefit from initiation of medications and close outpatient follow-up. We did discuss diet and lifestyle changes, and I started her on metformin, 500 mg twice daily to be titrated and adjusted by her primary care provider. At this time, the patient has had a full medical evaluation and is safe for discharge to home. They are hemodynamically stable, ambulatory, and tolerating PO. They are understanding of the follow-up plan and return precautions. They left our facility without incident. Mecca Blake MD [facility] All Active Problems (Updated 06/04/25 @ 17:23 by Mecca Blake MD) Diabetes (Chronic) Patellofemoral arthritis of left knee (Acute) Maltracking of left patella (Acute) Arthritis of left knee (Acute) Lumbar radiculitis (Chronic) Spondylosis of lumbosacral region without myelopathy or radiculopathy (Acute) Back pain (Acute) Medical History Dislocation of patella, right, closed Family history of diabetes mellitus Family history of breast cancer Obesity Tobacco use disorder Cyclical vomiting Chronic low back pain Depression with anxiety Arthralgia PTSD (post-traumatic stress disorder) Agoraphobia with panic attacks Hypothyroidism Dental caries Hx of bee sting allergy Ankle pain, right Social History Smoking/Tobacco Use Status: Current every day Tobacco Type: cigarettes Years smoked: 15 and e-cigarettes Tobacco: How many years used: 15 Smoking risk assessment performed?: Yes Alcohol Intake: current Alcohol Intake frequency: holidays/special occasions only Alcohol type: beer Drug use: Occasionally Substance use type: marijuana Details: CBD oil to help with pain, puts in her coffee Current gender identity: female Do you feel safe at home: Yes Do you feel safe in your relationship?: Yes
[2025-06-04] MEDS: Normal Saline - Diluent 50 ML VIAL IJ (15:47)
[2025-06-04] MEDS: Omnipaque 350 MG/ML 100 ML BTL IJ (15:48)
[2025-06-04] MEDS: Normal Saline Flush 10 ML SYR IVP (15:49)
[2025-06-04 16:01] LABS: ALT 42 U/L (14-59); AST 23 U/L (15-37); Albumin 3.5 g/dL (3.4-5.0); Alkaline Phosphatase 81 U/L (46-116); Anion Gap 9.0 mmol/L (3-11); BUN 8 mg/dL (7-18); Bilirubin, Total 0.3 mg/dL (0.2-1.0); CO2 28.0 mmol/L (21.0-32.0); Calcium 9.0 mg/dL (8.5-10.1); Chloride 96 mmol/L (98-107); Estimated GFR 96.66 (mL/min/1.73m2); Glucose 466 mg/dL (74-106); Magnesium 1.9 mg/dL (1.8-2.4); Potassium 3.8 mmol/L (3.5-5.1); Sodium 133 mmol/L (136-145); Total Protein 8.1 g/dL (6.4-8.2)
[2025-06-04 17:03] LABS: Hemoglobin A1C > 13.0 % (<5.7)
[2025-06-04 17:42] VITALS: BP 158/103; PULSE 96; RESP 16; TEMP 36.3; O2SAT 96
--- NOTE | 2025-06-10 14:14 | NUR.NOTE ---
Access chart to get the PCP to fax a prior authorization to them; [employer] lite w/device kit. Nursing Note:
== END 2025-06-04 17:43 | disposition home or self-care (01) ==
PROVIDERS: Emergency Provider Emergency Medicine; PCP Family Medicine
DX: R30.0 Dysuria (principal); E11.9 Type 2 diabetes mellitus without complications; I10 Essential (primary) hypertension
CPT/HCPCS: 99284; 99285; 96374; 96375; 80053; 74177; 81003; 83036; 83735; 85025; J1885; J2405; J3490